=== PATIENT | female | born 1935 | race Caucasian/White ===

== ENCOUNTER → 2016-06-10 | Outpatient (CLI) | payer BC, OTHER ==
[~2016-06-10] MED LIST: ASPCH81X PO; LOSA1TAB38 PO; METO25TA56 PO; MULT-506 PO; SERT50TA PO; SIMV20TA2 PO
[2016-06-10 13:15] LABS: ALT/SGPT 24 U/L (12-78); BLOOD UREA NITROGEN 18 mg/dl (7-18); BUN/CREATININE RATIO 18.4 (10-20); CALCIUM 9.8 mg/dl (8.5-10.1); CARBON DIOXIDE 28 mmol/L (21-32); CHLORIDE 106 mmol/L (98-107); CHOLESTEROL 177 mg/dl (0-200); CREATININE 0.96 mg/dl (0.60-1.20); GLUCOSE 89 mg/dl (70-99); POTASSIUM 4.4 mmol/L (3.5-5.1); SODIUM 141 mmol/L (136-145)
[2016-06-10 13:38] LABS: ALB/GLOB RATIO 1.3 (0.9-2); ALKALINE PHOSPHATASE 69 U/L (45-117); AST/SGOT 27 U/L (15-37); CHOLESTEROL/HDL RATIO 2.7; HDL CHOLESTEROL 66 mg/dl; LDL CHOLESTEROL CALCULATED 95 mg/dl; TRIGLYCERIDES 81 mg/dl (0-150); VERY LOW DENSITY LIPOPROT CALC 16 mg/dl
--- NOTE | 2016-06-15 09:37 | CODING QUERY MEDICAL NECESSITY ---
SUPPORTING DIAGNOSIS NEEDED A supporting diagnosis is required for the test/procedure performed on this patient in order for us to be reimbursed by the patient's insurance. Please provide a supporting diagnosis for the following test/procedure listed below next to the test name along with your signature. *If there is no additional diagnosis for this patient that would support the following test/procedure please document that below next to the test/procedure. Test(s)/Procedure(s) that require a supporting diagnosis: DOS 06/10 * Vitamin D DIAGNOSIS: Provider Signature: Date: Thank you [facility] Once completed, please kindly fax back to [phone] For questions please call [phone]
== END | disposition home or self-care (01) ==
LOC: C.LABPVFM 07:30
PROVIDERS: ATTEND Family Medicine
DX: F41.8 Other specified anxiety disorders (principal); E78.5 Hyperlipidemia, unspecified; I10 Essential (primary) hypertension; M85.80 Other specified disorders of bone density and structure, unspecified site

== ENCOUNTER → 2017-01-25 | Outpatient (CLI) | payer BC ==
[2017-01-25 13:11] LABS: ALB/GLOB RATIO 1.1 (0.9-2); ALKALINE PHOSPHATASE 78 U/L (45-117); ALT/SGPT 23 U/L (12-78); AST/SGOT 20 U/L (15-37); BLOOD UREA NITROGEN 19 mg/dl (7-18); CALCIUM 10.3 mg/dl (8.5-10.1); CARBON DIOXIDE 27 mmol/L (21-32); CHLORIDE 106 mmol/L (98-107); CHOLESTEROL 162 mg/dl (0-200); CHOLESTEROL/HDL RATIO 2.5; CREATININE 0.98 mg/dl (0.60-1.20); GLUCOSE 92 mg/dl (70-99); HDL CHOLESTEROL 66 mg/dl; POTASSIUM 4.7 mmol/L (3.5-5.1); SODIUM 140 mmol/L (136-145)
[2017-01-25 13:14] LABS: LDL CHOLESTEROL CALCULATED 82 mg/dl; TRIGLYCERIDES 70 mg/dl (0-150); VERY LOW DENSITY LIPOPROT CALC 14 mg/dl
== END | disposition home or self-care (01) ==
LOC: C.LABPVFM 08:52
PROVIDERS: ATTEND Family Medicine
DX: E78.5 Hyperlipidemia, unspecified (principal); I10 Essential (primary) hypertension

== ENCOUNTER → 2017-02-17 | Outpatient (CLI) | payer BC | END | disposition home or self-care (01) | LOC: C.LABPVFM 09:47 | PROVIDERS: ATTEND Family Medicine | DX: E83.52 Hypercalcemia (principal) ==

== ENCOUNTER → 2017-02-26 | Outpatient (CLI) | payer BC ==
--- NOTE | 2017-02-26 15:57 | MAMMOGRAPHY REPORT ---
BILATERAL DIGITAL SCREENING MAMMOGRAM WITH CAD: 02/26/2017 CLINICAL HISTORY: Routine screening. TECHNIQUE: Current study was also evaluated with a Computer Aided Detection (CAD) system. Bilateral CC and MLO views were obtained. COMPARISON: Comparison is made to exams dated: 08/16/2014 mammogram, 01/11/2012 mammogram, 01/07/2011 ma mmogram, 01/06/2010 mammogram - [facility], 12/26/2008, and 12/26/2007. BREAST COMPOSITION: There are scattered areas of fibroglandular density in both breasts. FINDINGS: No suspicious masses, calcifications, or areas of architectural distortion are noted in ei ther breast. There has been no significant interval change compared to prior exams. Scattered bilater al benign-appearing calcifications are not significantly changed. IMPRESSION: ACR BI-RADS CATEGORY 2: BENIGN There is no mammographic evidence of malignancy. A 1 year screening mammogram is recommended. The pa tient will receive written notification of the results. Approximately 10% of breast cancers are not detected with mammography. A negative mammographic report should not delay biopsy if a clinically suggestive mass is present. Kimberli Donald M.D. ah/:02/26/2017 15:29:10 Employee Relations Manager: Clara SMYTH(Rashawn)(M), [facility] letter sent: Normal 1/2 BI-RADS Code: ACR BI-RADS Category 2: Benign
== END | disposition home or self-care (01) ==
LOC: C.MAMM 13:54
PROVIDERS: ATTEND Family Medicine
DX: Z12.31 Encounter for screening mammogram for malignant neoplasm of breast (principal)

== ENCOUNTER → 2017-04-16 | Outpatient (CLI) | payer BC | END | disposition home or self-care (01) | LOC: C.LABPVFM 08:36 | PROVIDERS: ATTEND Nurse Practitioner | DX: E83.52 Hypercalcemia (principal) ==

== ENCOUNTER → 2017-05-31 | Outpatient (CLI) | payer BC ==
[2017-05-31 14:05] LABS: ALBUMIN 3.5 gm/dl (3.4-5.0); ALT/SGPT 19 U/L (12-78); AST/SGOT 21 U/L (15-37); BLOOD UREA NITROGEN 14 mg/dl (7-18); CALCIUM 9.6 mg/dl (8.5-10.1); CARBON DIOXIDE 28 mmol/L (21-32); CHOLESTEROL 152 mg/dl (0-200); CREATININE 0.85 mg/dl (0.60-1.20); GLUCOSE 92 mg/dl (70-99); POTASSIUM 4.6 mmol/L (3.5-5.1); SODIUM 139 mmol/L (136-145)
[2017-05-31 14:07] LABS: ALKALINE PHOSPHATASE 74 U/L (45-117); LDL CHOLESTEROL CALCULATED 81 mg/dl; TOTAL PROTEIN 6.8 gm/dl (6.4-8.2)
== END | disposition home or self-care (01) ==
LOC: C.LABPVFM 08:08
PROVIDERS: ATTEND Family Medicine
DX: E78.5 Hyperlipidemia, unspecified (principal); I10 Essential (primary) hypertension

== ENCOUNTER → 2017-07-26 | Outpatient (CLI) | payer BC ==
[2017-07-26 12:50] LABS: BLOOD UREA NITROGEN 16 mg/dl (7-18); CARBON DIOXIDE 29 mmol/L (21-32); CREATININE 0.89 mg/dl (0.60-1.20); GLUCOSE 98 mg/dl (70-99); POTASSIUM 4.7 mmol/L (3.5-5.1); SODIUM 138 mmol/L (136-145)
== END | disposition home or self-care (01) ==
LOC: C.LABPVFM 10:06
PROVIDERS: ATTEND Nurse Practitioner
DX: R00.2 Palpitations (principal); M85.80 Other specified disorders of bone density and structure, unspecified site; I10 Essential (primary) hypertension; G25.0 Essential tremor

== ENCOUNTER 2022-04-21 08:29 | Inpatient (IN) ==
[2022-04-21] MEDS ORDERED: dilTIAZem HCl 5 MG/ML 5 ML VIAL IV STA (09:24)
[2022-04-21] MEDS ORDERED: STAT IV Infusion **Titration per Protocol STA (09:24)
--- NOTE | 2022-04-21 09:28 | Emergency Department Note ---
Impression & Plan Atrial fibrillation with RVR, Elevated troponin, Breath shortness ED Provider Note NAME: JUAN CRUZ AGE: 87 SEX: F : 1935 ARRIVES VIA: Walk-In INFORMANT: Patient ED PROVIDER(S): Jacobo Chou DO CHIEF COMPLAINT: shortness of breath HPI: Patient is an 87-year-old female who presents to the ER with a past medical history of depression, SVT, hypertension and dyslipidemia for feeling her heart race and feeling short of breath with up moving around since Wednesday. Denies any chest pain. No belly pain, nausea, vomiting, or diarrhea. No dysuria, urgency, or frequency. She does feel weak and rundown. No other exacerbating or remitting factors. ROS: See above HPI for pertinent positives & negatives. A total of 10 systems reviewed and were otherwise negative. PAST MEDICAL HISTORY:See Below PAST SURGICAL HISTORY:See Below FAMILY HISTORY:See Below SOCIAL HISTORY:See Below HOME MEDICATIONS:See Below ALLERGIES:See Below VITALS:See Below PHYSICAL EXAMINATION: GENERAL: Sitting up in bed, alert, well appearing, well nourished, no distress, non-toxic EYE EXAM: normal conjunctiva. OROPHARYNX: no exudate, no erythema, lips, buccal mucosa, and tongue normal and mucous membranes are moist NECK: supple, no nuchal rigidity, no adenopathy, non-tender LUNGS: Clear to auscultation. Normal chest wall mechanics HEART: Tachycardic and irregular regular, S1 normal and S2 normal ABDOMEN: abdomen soft, non-tender, normo-active bowel sounds, no masses, no rebound or guarding. UPPER EXTREMITIES: upper extremities are grossly normal. LOWER EXTREMITIES: No pitting edema. NEURO EXAM: Normal sensorium, cranial nerves II-XII grossly intact, normal sp eech, no gross weakness of arms, no gross weakness of legs. MEDICAL DECISION MAKING: Patient is an 87-year-old female who presents ER for the above-stated complaint. Upon arrival she is found to be tachycardic and irregular regular consistent with A. fib. History of SVT previously. Heart rates in the 170s. IV was established blood work was obtained. Labs show no significant leukocytosis or anemia. BMP was remarkable for slightly elevated glucose at 116. Calcium also mildly elevated at 10.9. Troponin was elevated at 344. She denies any chest pain. I do favor that this likely rate related with her heart rate going in the 170s since Wednesday. TSH was unremarkable. COVID was negative. Chest x-ray was unremarkable. She was given aspirin and placed on Cardizem drip and given a Cardizem bolus. Drip was titrated up. Heart rate trended down to the low 100s. Patient was feeling slightly better. She was updated bedside discussed with the hospitalist for further evaluation. Triage Nursing notes reviewed. Limited review of prior medical records performed Vital Signs: reviewed and remarkable for tachy Differential diagnosis: Differential diagnoses includes but is not limited to pneumonia, bronchitis, COPD/Asthma exacerbation, pneumothorax, pulmonary embolism, congestive heart failure, acute coronary syndrome ER treatment provided: See below Diagnostics interpreted by me: ECG: A. fib rate of 160 Left axis Septal Q waves ST depressions in the inferior as well as V3 through V6 QTC 466 Slight elevation in the septal leads. Cardiac Monitoring: An order was placed for continuous cardiac monitoring. The monitor shows a rate of 172 with Afib rvr rhythm. Laboratory studies: As stated above and show below. Imaging studies: Portable AP upright 1 view of the chest shows no focal infiltrate Consultation(s): Discussed with the hospitalist for further evaluation Radha Benítez Procedures: none Critical Care: I have personally spent 33 minutes of critical care time in the direct management of this patient. This includes bedside care, interpretation of diagnostic studies, and testing, discussion with consultants, patient, and family members, and other required patient management activities. This 33 minutes is in excess of all separately billable procedures. Past Med/Surg History Medical History (Updated 04/21/22 @ 13:38 by Jacobo Chou DO) Acute sinusitis External carotid artery stenosis Fatigue Granulocytopenia Hypercalcemia Left thigh pain Low back ache Myofascial muscle pain Seborrheic keratosis Telangiectasia Surgical History History of cataract surgery Family History Brother Myocardial infarction Denies family history of Ovarian cancer Prostate cancer Breast cancer Colorectal cancer Social History Smoking Status: Never smoker Second Hand Exposure: No; Hx Alcohol Use: No Hx Substance Use: No Preferred Language: Macanese marital status: / Current Living Situation: Family current occupational status: retired Feels Safe at Home: Yes caffeine: Yes Dental Care, Regularly: Yes Physical Activity Frequency: Does not Exercise Seatbelt Use: always Sunscreen Use: Yes Allergies Allergies Allergy/AdvReac Type Severity Reaction Status Date / Time No Known Drug Allergies AdvReac Unknown Verified 12/26/21 15:26 Home Meds Home Medications Medication Instructions Recorded Confirmed aspirin 81 mg tablet 81 mg PO DAILY #30 tabs 03/19/19 04/21/22 cholecalciferol (vitamin D3) 50 2,000 units PO DAILY 03/19/19 04/21/22 mcg (2,000 unit) capsule vitamins A,C,A-zcza-frsyrt 14,320 1 cap PO BID 05/02/21 04/21/22 unit-226 mg-200 unit capsule (PreserVision AREDS) losartan 50 mg tablet 100 mg PO DAILY 04/21/22 04/21/22 Previous Rx's Medication Instructions Recorded simvastatin 20 mg tablet 20 mg PO DAILY #90 tabs 08/12/21 escitalopram oxalate 5 mg tablet 5 mg PO DAILY #90 tabs 11/04/21 (Lexapro) propranolol 60 mg capsule,24 60 mg PO DAILY #90 caps 03/10/22 hr,extended release Results & Data (ED) Vital Signs Vital Signs - 24 hr 04/21/22 08:47 04/21/22 09:16 04/21/22 09:17 Temperature 36.4 C L Temperature Source Temporal Artery Scan Pulse Rate 117 H Pulse Rate [Apical] 165 H Pulse Rhythm Regular Pulse Rhythm [Apical] Irregular Pulse Strength Normal Respiratory Rate 20 19 Respiratory Effort / Characteristics Non-Labored Spontaneous Respiratory Depth Normal Respiratory Pattern Regular Blood Pressure 126/80 Blood Pressure [Left Arm] Blood Pressure Mean 95 Blood Pressure Mean [Left Arm] Blood Pressure Position Sitting Pulse Oximetry 99 96 96 Oxygen Delivery Method Room Air Room Air Sepsis Recent Fever Within 48 Hours No Sepsis New/Unexplained Change in Mental Status No Sepsis Action Taken by Nursing No Action Required 04/21/22 09:17 04/21/22 09:35 Temperature Temperature Source Pulse Rate Pulse Rate [Apical] 119 H Pulse Rhythm Pulse Rhythm [Apical] Irregular Pulse Strength Respiratory Rate 18 Respiratory Effort / Characteristics Respiratory Depth Respiratory Pattern Blood Pressure Blood Pressure [Left Arm] 96/66 L Blood Pressure Mean Blood Pressure Mean [Left Arm] 76 Blood Pressure Position Pulse Oximetry 96 Oxygen Delivery Method Room Air Room Air Sepsis Recent Fever Within 48 Hours Sepsis New/Unexplained Change in Mental Status Sepsis Action Taken by Nursing Laboratory Data Result diagrams: 04/21/22 09:15 04/21/22 09:15 Lab Results 04/21/22 04/21/22 04/21/22 Range/Units 09:15 09:15 09:15 WBC 9.07 (4.8-10.8) K/ul RBC 4.91 (3.93-5.22) M/uL Hgb 15.2 (12.0-16.0) g/dl Hct 46.7 H (34.1-44.9) % MCV 95.1 (80.0-100.0) fL MCH 31.0 (25.0-34.0) pg MCHC 32.5 (32.0-36.0) g/dL RDW Std Deviation 43.4 (36.4-46.3) fL RDW Coeff of Elizabeth 12.4 (11.5-14.5) % Plt Count 234 (130-400) K/uL MPV 11.3 (9.4-12.3) fL Immature Gran % (Auto) 0.4 % Neut % (Auto) 71.6 % Lymph % (Auto) 19.7 % Gove % (Auto) 6.6 % Eos % (Auto) 0.9 % Baso % (Auto) 0.8 % Neut # (Auto) 6.49 (1.4-6.5) K/uL Lymph # (Auto) 1.79 (1.2-3.4) K/uL Gove # (Auto) 0.60 (0.24-0.82) K/uL Eos # (Auto) 0.08 (0-0.50) K/uL Baso # (Auto) 0.07 (0-0.2) K/uL Immature Gran # (Auto) 0.04 H (0.00-0.02) K/uL PT 11.3 (9.0-12.0) Seconds INR 1.1 (0.9-1.1) APTT 26.2 (21.0-31.0) Seconds PTT Ratio 1.0 Sodium 140 (136-145) mmol/L Potassium 4.1 (3.5-5.1) mmol/L Chloride 104 (98-107) mmol/L Carbon Dioxide 30 (21-32) mmol/L Anion Gap 6 (3-11) BUN 23 (6-23) mg/dl Creatinine 1.01 (0.6-1.2) mg/dl Est Cr Clr Drug Dosing 33.7 ml/min Est GFR ( Amer) 58.8 ml/min Est GFR (Non-Af Amer) 50.7 ml/min BUN/Creatinine Ratio 22.8 H (10-20) Glucose 116 H (70-99(Fasting)) mg/dl Calcium 10.9 H (8.5-10.1) mg/dl Total Bilirubin 0.6 (0.2-1.0) mg/dl AST 24 (13-39) U/L ALT 19 (7-52) U/L Alkaline Phosphatase 69 (34-104) U/L Troponin I High Sens 344.1 H* (0-14) pg/ml Total Protein 6.5 (6.0-8.3) gm/dl Albumin 4.0 (3.4-5.0) gm/dl Globulin 2.5 (2.5-4.0) gm/dl Albumin/Globulin Ratio 1.6 (0.9-2) TSH (0.300-4.500) uIu/ml 04/21/22 Range/Units 09:15 WBC (4.8-10.8) K/ul RBC (3.93-5.22) M/uL Hgb (12.0-16.0) g/dl Hct (34.1-44.9) % MCV (80.0-100.0) fL MCH (25.0-34.0) pg MCHC (32.0-36.0) g/dL RDW Std Deviation (36.4-46.3) fL RDW Coeff of Elizabeth (11.5-14.5) % Plt Count (130-400) K/uL MPV (9.4-12.3) fL Immature Gran % (Auto) % Neut % (Auto) % Lymph % (Auto) % Gove % (Auto) % Eos % (Auto) % Baso % (Auto) % Neut # (Auto) (1.4-6.5) K/uL Lymph # (Auto) (1.2-3.4) K/uL Gove # (Auto) (0.24-0.82) K/uL Eos # (Auto) (0-0.50) K/uL Baso # (Auto) (0-0.2) K/uL Immature Gran # (Auto) (0.00-0.02) K/uL PT (9.0-12.0) Seconds INR (0.9-1.1) APTT (21.0-31.0) Seconds PTT Ratio Sodium (136-145) mmol/L Potassium (3.5-5.1) mmol/L Chloride (98-107) mmol/L Carbon Dioxide (21-32) mmol/L Anion Gap (3-11) BUN (6-23) mg/dl Creatinine (0.6-1.2) mg/dl Est Cr Clr Drug Dosing ml/min Est GFR ( Amer) ml/min Est GFR (Non-Af Amer) ml/min BUN/Creatinine Ratio (10-20) Glucose (70-99(Fasting)) mg/dl Calcium (8.5-10.1) mg/dl Total Bilirubin (0.2-1.0) mg/dl AST (13-39) U/L ALT (7-52) U/L Alkaline Phosphatase (34-104) U/L Troponin I High Sens (0-14) pg/ml Total Protein (6.0-8.3) gm/dl Albumin (3.4-5.0) gm/dl Globulin (2.5-4.0) gm/dl Albumin/Globulin Ratio (0.9-2) TSH 2.022 (0.300-4.500) uIu/ml Administered Medications Diltiazem HCl 125 mg/ Dextrose 125 mls @ 5 mls/hr IV .Q24H [facility]; Protocol Stop: 05/21/22 09:29 Last Titration: 04/21/22 11:06 Dose: 10 mg/hr, 10 mls/hr Documented By: AZALIA Co-signed By: ROSINA Admin: 04/21/22 09:39 Dose: 5 mg/hr, 5 mls/hr Documented By: AZALIA Co-signed By: HS Discontinued Medications Aspirin (Aspirin Chew 324 Mg) 324 mg PO NOW STA Stop: 04/21/22 10:54 Last Admin: 04/21/22 11:08 Dose: 324 mg Documented By: AZALIA Diltiazem HCl (Diltiazem Hcl 5 Mg/Ml 5 Ml Vial) 10 mg IV NOW STA Stop: 04/21/22 09:25 Last Admin: 04/21/22 09:30 Dose: 10 mg Documented By: KV Co-signed By: ROSINA Sodium Chloride (Nss) 500 mls @ 999 mls/hr IV .Q31M ONE Stop: 04/21/22 11:04 Last Infusion: 04/21/22 11:38 Dose: 0 mls/hr Documented By: Admin: 04/21/22 11:07 Dose: 999 mls/hr Documented By: KV Imaging Data Radiologist's Impression: Chest X-Ray 04/21/22 08:51 XR chest 1V portable HISTORY: 87 years-old Female Chest Pain . Acute chest pain. COMPARISON: None TECHNIQUE: AP view of the chest FINDINGS: Cardiac silhouette is mildly enlarged. Mild pleural thickening of the lung apices. Mild coarsening of interstitium may be chronic. No pneumothorax, pleural effusion or lobar airspace consolidation. Degenerative changes of the shoulders and spine. IMPRESSION: Cardiomegaly without acute process. ACT 112: Negative or not required by law. The above report was generated using voice recognition software. It may contain grammatical, syntax or spelling errors. Electronically signed by: Geovany Langston M.D. 04/21/2022 10:12 AM Discharge Plan Visit Data Chief Complaint: Arrhythmia/Palpitations Stated Complaint: ARRHYTHMIAS ED Provider: Jacobo Chou Discharge Problem: Atrial fibrillation with RVR, Elevated troponin, Breath shortness Patient Disposition: Admitted As Inpatient Discharge Instructions Interventions: ED Discharge Assessment Last Done: 04/21/22 12:48
[2022-04-21] MEDS: dilTIAZem HCL 125 MG in DEXTROSE 5% 100 ML IV SCH ×2 (09:39→22:03)
[2022-04-21 10:05] LABS: Basophils # (auto) 0.07 K/uL (0-0.2); Basophils % (auto) 0.8 %; Eosinophils # (auto) 0.08 K/uL (0-0.50); Eosinophils % (auto) 0.9 %; Hematocrit (blood only) 46.7 % (34.1-44.9); Hemoglobin 15.2 g/dl (12.0-16.0); Immature Granulocytes # (auto) 0.04 K/uL (0.00-0.02); Immature Granulocytes % (auto) 0.4 %; Lymphocytes # (auto) 1.79 K/uL (1.2-3.4); Lymphocytes % (auto) 19.7 %; Mean Corpuscular Hgb Conc 32.5 g/dL (32.0-36.0); Mean Corpuscular Volume 95.1 fL (80.0-100.0); Mean Platelet Volume 11.3 fL (9.4-12.3); Monocytes % (auto) 6.6 %; Neutrophils # (auto) 6.49 K/uL (1.4-6.5); Neutrophils % (auto) 71.6 %; Platelet Count 234 K/uL (130-400); RDW Coefficient of Variation 12.4 % (11.5-14.5); RDW Standard Deviation 43.4 fL (36.4-46.3); Red Blood Count 4.91 M/uL (3.93-5.22); White Blood Count 9.07 K/ul (4.8-10.8)
--- NOTE | 2022-04-21 10:13 | XRay Report ---
XR chest 1V portable HISTORY: 87 years-old Female Chest Pain . Acute chest pain. COMPARISON: None TECHNIQUE: AP view of the chest FINDINGS: Cardiac silhouette is mildly enlarged. Mild pleural thickening of the lung apices. Mild coarsening of interstitium may be chronic. No pneumothorax, pleural effusion or lobar airspace consolidation. Dege nerative changes of the shoulders and spine. IMPRESSION: Cardiomegaly without acute process. ACT 112: Negative or not required by law. The above report was generated using voice recognition software. It may contain grammatical, syntax o r spelling errors. Electronically signed by: Geovany Langston M.D. 04/21/2022 10:12 AM
[2022-04-21 10:22] LABS: INR 1.1 (0.9-1.1); Partial Thromboplastin Time 26.2 Seconds (21.0-31.0); Prothrombin Time 11.3 Seconds (9.0-12.0)
[2022-04-21] MEDS ORDERED: SODIUM CHLORIDE 0.9% 500 ML IV ONE (10:34)
[2022-04-21 10:43] LABS: Albumin Globulin Ratio 1.6 (0.9-2); BUN Creatinine Ratio 22.8 (10-20); Bilirubin,Total 0.6 mg/dl (0.2-1.0); Calcium 10.9 mg/dl (8.5-10.1); Creatinine Clr Calc Pharmacy 33.7 ml/min; Est GFR (African American) 58.8 ml/min; Est GFR (Non-African American) 50.7 ml/min; Globulin 2.5 gm/dl (2.5-4.0); Potassium 4.1 mmol/L (3.5-5.1); Total Protein 6.5 gm/dl (6.0-8.3)
[2022-04-21 10:48] LABS: Troponin I High Sensitivity 344.1 pg/ml (0-14)
[2022-04-21] MEDS ORDERED: ASPIRIN CHEW 324 MG PO STA (10:53)
--- NOTE | 2022-04-21 10:57 | History & Physical Report ---
Date of Service April 21, 2022 Assessment & Plan (1) Atrial fibrillation with RVR: Plan: - 4 days of palpiations, SOB, general weakness/fatigue. - A fib present, hemodynamically stable on initial eval in ED with HR 160-180s, given 500 cc NSS and diltiazem drip w/ bolus in ED. - Now down to 110s but quickly goes back to 140s with ambulation to bathroom. - No acute illness/infection, missed Propranolol doses, or electrolyte abnormalities on initial ED labs to explain onset--though mag, TSH, UA are pending. - In addition to diltiazem drip, will start patient on Cardizem 30 mg TID. - Will consult cardiology to evaluate patient today. - Patient insistent this is not a fib, would like to wait for cardiology evaluation before starting on anticoagulation. - Maintain K 4.0, Mg 2.0. - Echo ordered, pending. (2) Elevated troponin: Plan: - Trop elevated at 344, EKG not available in system for my review but ED provider reported ST segment changes in inferior and anterolateral leads. - Full dose ASA received in ED. - Patient is without chest pain or tightness, so suspect this is demand from being in afib for 4 days now, but cannot r/o underlying CAD. - Will trend troponin overnight, as well as repeat echo and have cardiology on consult as above. - Patient instructed to ring fro assistance with any new onset chest pain/pressure. (3) Paroxysmal SVT (supraventricular tachycardia): Plan: - Longstanding history, follows with cardiology. - She is maintained on propranolol 60 mg daily, no missed doses. Occasionally takes an extra dose for rapid HR. Did take one additional dose over the weekend without alleviation. - Cardiology consulted as above. (4) Benign essential tremor: Plan: - Maintained on propranolol. (5) Hypertension: Plan: - Continue losartan. (6) Dyslipidemia: Plan: - Continue simvastatin. (7) Hypercalcemia: Plan: - Elevated today at 10.9, and has been elevated on previous outpatient labs from this summer perp PCP note. - Last PTH and vitamin D were reportedly normal. - Continue to monitor. (8) Allergic rhinitis: Plan: - Continue Flonase, OTC medications as needed. (9) Depression: Plan: - Continue lexapro. Plan - Admit to PCU. - SCDS, Lovenox for VTE ppx. - Conditional Code--YES to CPR/defibrillation/ACLS protocl but does not want mechanical airway/intubation. History of Present Illness Chief Complaint: Palpitations, shortness of breath x4 days Primary Care Provider: SARAH Sanches Avelina Esposito is an 87-year-old female the past medical history of paroxysmal SVT, hypertension, dyslipidemia, depression, and hypercalcemia who is presenting today with 4 days of palpitations and shortness of breath. Symptoms began on Wednesday 04/18 when she noticed her heart seemed to be beating fast and erratically which she believed to be her paroxysmal SVT. She tried to take an extra dose of the propranolol which she typically does to break this, but did no t have alleviation of her symptoms. The palpitations have persisted despite taking her propranolol as scheduled in addition to 1 extra dose, and she became progressively short of breath reportedly 4-5 steps throughout her home. At baseline she is independent and cleans her home and cares for self without ever experiencing chest pain or shortness of breath, however it is not uncommon for her to go into what she perceives to be SVT 12 times/month. She has not had any fever, chills, body aches, cough, abdominal pain, nausea, vomiting, or dysuria but does feel generally rundown. Upon presentation to the ED, she had an HR in the 170s, otherwise vital signs wnl. Her troponin is elevated at 344, otherwise labs largely unrevealing. COVID-negative. CXR with cardiomegaly, no acute disease process noted. She was given 500 cc NSS bolus, started on a diltiazem drip, and given full dose aspirin in the ED. Allergies Allergy/AdvReac Type Severity Reaction Status Date / Time No Known Drug Allergies AdvReac Unknown Verified 12/26/21 15:26 Home Medications Medication Instructions Recorded Confirmed Type aspirin 81 mg tablet 81 mg PO DAILY #30 tabs 03/19/19 04/21/22 History cholecalciferol (vitamin D3) 50 2,000 units PO DAILY 03/19/19 04/21/22 History mcg (2,000 unit) capsule vitamins A,C,R-utqy-lyvfyz 14,320 1 cap PO BID 05/02/21 04/21/22 History unit-226 mg-200 unit capsule (PreserVision AREDS) simvastatin 20 mg tablet 20 mg PO DAILY #90 tabs 08/12/21 04/21/22 Rx escitalopram oxalate 5 mg tablet 5 mg PO DAILY #90 tabs 11/04/21 04/21/22 Rx (Lexapro) propranolol 60 mg capsule,24 60 mg PO DAILY #90 caps 03/10/22 04/21/22 Rx hr,extended release losartan 50 mg tablet 100 mg PO DAILY 04/21/22 04/21/22 History Past Med/Surg History Medical History (Updated 04/21/22 @ 11:46 by Radha Gonsalez PA-C) Acute sinusitis External carotid artery stenosis Fatigue Granulocytopenia Hypercalcemia Left thigh pain Low back ache Myofascial muscle pain Seborrheic keratosis Telangiectasia Surgical History History of cataract surgery Family History Brother Myocardial infarction Denies family history of Ovarian cancer Prostate cancer Breast cancer Colorectal cancer Social History Smoking Status: Never smoker Second Hand Exposure: No; Hx Alcohol Use: No Hx Substance Use: No Preferred Language: Citizen Of [place] marital status: / Current Living Situation: Family current occupational status: retired Feels Safe at Home: Yes caffeine: Yes Dental Care, Regularly: Yes Physical Activity Frequency: Does not Exercise Seatbelt Use: always Sunscreen Use: Yes Review of Systems Review of Systems: Constitutional: General weakness, fatigue x4 days; no fever/chills, myalgias, anorexia, night sweats Eyes: No diplopia, no worsening or blurred vision ENT: normal hearing, no trouble swallowing Respiratory: Progressive SOB, dyspnea on exertion x4 days; no cough, sputum Cardiovascular: Palpitations x4 days, no chest pain or tightness Abdomen: No pain, nausea, vomiting, diarrhea or constipation : Denies dysuria, hematuria, increased urgency/frequency, urinary retention Musculoskeletal: No joint pain, calf pain, swelling Neurologic: No weakness, numbness/tingling, or balance problems Psychiatric: No anxiety or depression Skin: No rash or itch Physical Exam Physical Exam: General: awake, alert, no apparent distress Head: Normocephalic, atraumatic ENT: PERRL, EOMI, no pharyngeal exudate, mucous membranes moist Chest: Clear to auscultation, on room air, no adventitious breath sounds Cardiac: Irregular rate and rhythm consistent with A. fib; no murmur, no JVD, normal peripheral pulses, good capillary refill Abdominal: NABS x 4 quadrants, soft, nontender to palpation, no rebound, guarding or tenderness Extremities: Normal inspection, no peripheral edema or erythema, calfs nontender to palpation Psych: Normal mood and affect Neuro: AAO x 3, strength intact bilaterally and rated 5/5, no motor deficits, speech is clear, no peripheral sensory deficits Skin: no rash or erythema Results & Data Results & Data ([facility]) Vital Signs (Past 12 Hours) Vital Signs Temp Pulse Pulse Resp BP BP Pulse Ox 04/21/22 09:35 119 H 18 96/66 L 96 04/21/22 09:17 04/21/22 09:17 165 H 19 96 04/21/22 09:16 96 04/21/22 08:47 36.4 C L 117 H 20 126/80 99 O2 Del Method 04/21/22 09:35 Room Air 04/21/22 09:17 Room Air 04/21/22 09:17 04/21/22 09:16 Room Air 04/21/22 08:47 Room Air Laboratory Results Abnormal lab results 04/21/22 04/21/22 Range/Units 09:15 09:15 Hct 46.7 H (34.1-44.9) % Immature Gran # (Auto) 0.04 H (0.00-0.02) K/uL BUN/Creatinine Ratio 22.8 H (10-20) Glucose 116 H (70-99(Fasting)) mg/dl Calcium 10.9 H (8.5-10.1) mg/dl Troponin I High Sens 344.1 H* (0-14) pg/ml Diagnostic Findings Chest X-Ray 04/21/22 08:51 XR chest 1V portable HISTORY: 87 years-old Female Chest Pain . Acute chest pain. COMPARISON: None TECHNIQUE: AP view of the chest FINDINGS: Cardiac silhouette is mildly enlarged. Mild pleural thickening of the lung apices. Mild coarsening of interstitium may be chronic. No pneumothorax, pleural effusion or lobar airspace consolidation. Degenerative changes of the shoulders and spine. IMPRESSION: Cardiomegaly without acute process. ACT 112: Negative or not required by law. The above report was generated using voice recognition software. It may contain grammatical, syntax or spelling errors. Electronically signed by: Geovany Langston M.D. 04/21/2022 10:12 AM Code Status & VTE Plan Code Status Conditional Code--YES to CPR/defibrillation and standard ACLS protocol but WOULD NOT WANT mechanical airway/intubation. Supervising Physician Co-Signing Physician Notes Patient was seen and examined independently I discussed the case with Radha YOUSSEF I reviewed pertinent past medical social family history and also the plan of care and agree with the plan of care. Patient has history of SVT takes propranolol. She took an additional dose of propranolol she felt palpitations. In the emergency department she has a rapid rate which seems to be more atrial fibrillation of which she does not have a significant history. Most office visits recently have had low heart rates. Patient is not yet decided whether she would permit full anticoagulation. She wishes to speak to her community coordinator about it. Other than that she does not have any current chest pain. She becomes dyspneic when she exerts herself. Cardiac exam finds a be tachycardic and irregularly irregular her lungs are clear her abdomen is normoactive bowel sounds extremities are without edema Atrial fibrillation rapid ventricular response Patient will be continued on diltiazem drip and started on p.o. diltiazem in addition to her propranolol. Echocardiography and cardiology consultation will be performed Checking magnesium and thyroid Any exceptions will be noted below PG Care Time/CCT Total # of Minutes Spent Total Time Spent with Patient: Total time spent is greater than 50% in coordination of care (as documented) at patient's floor/unit and/or counseling patient: Coding Level of Care Code 16505 Initial Inpt Care Lvl 3 Diagnoses Atrial fibrillation with RVR I48.91 Elevated troponin R77.8 Paroxysmal SVT (supraventricular tachycardia) I47.1 Benign essential tremor G25.0 Hypertension I10 Dyslipidemia E78.5 Hypercalcemia E83.52 Allergic rhinitis J30.9 Depression F32.9
[2022-04-21] MEDS ORDERED: ONDANSETRON INJ 2 MG/ML 2 ML VIAL IV PRN (12:48)
[2022-04-21] MEDS ORDERED: POLYETHYLENE (MIRALAX) 17 GM PACK PO PRN (12:48)
[2022-04-21] MEDS ORDERED: ALUMINUM/MAGNESIUM SUSP 30 ML UDC PO PRN (12:48)
[2022-04-21] MEDS ORDERED: ACETAMINOPHEN 325 MG TAB PO PRN (12:48)
[2022-04-21 13:48] LABS: Magnesium 1.8 mg/dl (1.7-2.4)
[2022-04-21 14:00] LABS: Troponin I High Sensitivity 518.3 pg/ml (0-14)
--- NOTE | 2022-04-21 14:12 | XCELERA ---
[id number] \\[id number]
[2022-04-21] MEDS ORDERED: INFLUENZA VACCINE HIGH DOSE PF 65+ 0.7 ML SYR IM ONE (15:51)
[2022-04-21] MEDS: dilTIAZem HCL 30 MG TAB PO SCH ×2 (16:01→20:06)
--- NOTE | 2022-04-21 16:05 | Cardiology Consultation ---
Date of Consultation April 21, 2022 Assessment & Plan (1) Atrial fibrillation with RVR: -the patient has been in atrial fibrillation most likely since Wednesday afternoon. -she has responded to intravenous diltiazem. -can convert her to oral diltiazem. -would initiate Eliquis 2.5 mg b.i.d. (greater than 80 years of age, almost less than 60 kg). -echocardiogram notes normal left ventricular systolic function. (2) Hypertension: -controlled on current regimen. (3) Dyslipidemia: -continue simvastatin. History of Present Illness Attending Physician: Anthony Hawkins MD History of Present Illness Mrs. Esposito is an 87-year-old female admitted earlier today with new onset atrial fibrillation and a rapid ventricular response. Of note, patient is well known to me from the outpatient setting. The patient was in her usual state of health until 3:30 on Wednesday afternoon. She noticed the abrupt onset of palpitations and exertional dyspnea. Her symptoms persisted through the ensuing days. Today, she began to note weakness associated with her palpitations, therefore, presented to the emergency room for further care. On arrival here, patient was found to be in atrial fibrillation with a rapid ventricular response. She was placed on a diltiazem drip and her heart rate is now better controlled. She has never the diagnosis of atrial fibrillation. She does have a history of symptomatic PACs and PVCs. She also history a paroxysmal supraventricular tachycardia. Currently, patient is resting comfortably in bed without complaints. Past medical and surgical history 1. Hypertension 2. Hypercholesterolemia 3. Symptomatic PACs/PVCs 4. Paroxysmal SVT 5. Mild mitral regurgitation-May 2021 6. Essential tremor 7. Allergic rhinitis 8. Bilateral intra-ocular lens implants Social history , lives alone No tobacco alcohol Family history Noncontributory Review of systems Ten point review systems was undertaken and negative except that described above. Allergies Allergy/AdvReac Type Severity Reaction Status Date / Time No Known Drug Allergies AdvReac Unknown Verified 12/26/21 15:26 Home Medications Medication Instructions Recorded Confirmed Type aspirin 81 mg tablet 81 mg PO DAILY #30 tabs 03/19/19 04/21/22 History cholecalciferol (vitamin D3) 50 2,000 units PO DAILY 03/19/19 04/21/22 History mcg (2,000 unit) capsule vitamins A,C,N-ttom-rsvins 14,320 1 cap PO BID 05/02/21 04/21/22 History unit-226 mg-200 unit capsule (PreserVision AREDS) simvastatin 20 mg tablet 20 mg PO DAILY #90 tabs 08/12/21 04/21/22 Rx escitalopram oxalate 5 mg tablet 5 mg PO DAILY #90 tabs 11/04/21 04/21/22 Rx (Lexapro) propranolol 60 mg capsule,24 60 mg PO DAILY #90 caps 03/10/22 04/21/22 Rx hr,extended release losartan 50 mg tablet 100 mg PO DAILY 04/21/22 04/21/22 History Patient History Medical History (Updated 04/21/22 @ 13:38 by Jacobo Chou DO) Acute sinusitis External carotid artery stenosis Fatigue Granulocytopenia Hypercalcemia Left thigh pain Low back ache Myofascial muscle pain Seborrheic keratosis Telangiectasia Surgical History History of cataract surgery Family History Brother Myocardial infarction Denies family history of Ovarian cancer Prostate cancer Breast cancer Colorectal cancer Social History Smoking Status: Never smoker Second Hand Exposure: No; Hx Alcohol Use: No Hx Substance Use: No Preferred Language: [place]an Communication Ability: Effective 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 HEENT exam is negative. Neck is supple with full carotid upstrokes. No carotid bruits. No jugular venous distention. There is no thyromegaly. Cardiovascular exam reveals an irregularly irregular rhythm with distant heart sounds. No obvious murmurs are noted. Lungs are clear without rales, rhonchi or wheezes. Abdomen is soft without bruits. Extremities reveal intact radial artery pulses bilaterally. There is no peripheral edema. Results & Data ([facility]) Vital Signs (Past 12 Hours) Vital Signs Temp Pulse Pulse Resp BP BP Pulse Ox 04/21/22 15:45 04/21/22 13:38 79 16 128/86 100 04/21/22 13:38 81 18 143/73 H 100 04/21/22 12:43 79 15 127/75 96 04/21/22 11:11 146 H 16 95 04/21/22 09:35 119 H 18 96/66 L 96 04/21/22 09:17 04/21/22 09:17 165 H 19 96 04/21/22 09:16 96 04/21/22 08:47 36.4 C L 117 H 20 126/80 99 O2 Del Method 04/21/22 15:45 Room Air 04/21/22 13:38 Room Air 04/21/22 13:38 Room Air 04/21/22 12:43 04/21/22 11:11 Room Air 04/21/22 09:35 Room Air 04/21/22 09:17 Room Air 04/21/22 09:17 04/21/22 09:16 Room Air 04/21/22 08:47 Room Air Laboratory Results CBC notes hemoglobin 15.2, hematocrit 46.7, white count 9.07, and platelet count of [id number]. Electrolytes note a sodium 140, potassium 4.1, chloride 104, bicarb with 30, BUN 23, and a creatinine of 1.01. High sensitivity troponin on presentation was 344.1 with a follow-up value 518.3. TSH is normal at 2.02. Diagnostic Findings EKG notes atrial fibrillation with a rapid ventricular response. There is a marked ST T-wave abnormality in the anterolateral and inferior leads. PG Care Time/CCT Total # of Minutes Spent Total Time Spent with Patient: Total time spent is greater than 50% in coordination of care (as documented) at patient's floor/unit and/or counseling patient: Coding Level of Care Code INT OBSERVATION CARE 70M LVL 3 Diagnoses Atrial fibrillation with RVR I48.91 Hypertension I10 Dyslipidemia E78.5
--- NOTE | 2022-04-21 16:43 | Electrocardiogram Report ---
Test Reason : Blood Pressure : / mmHG Vent. Rate : 164 BPM Atrial Rate : 159 BPM P-R Int : 000 ms QRS Dur : 086 ms QT Int : 288 ms P-R-T Axes : 000 -39 208 degrees QTc Int : 475 ms Poor data quality, interpretation may be adversely affected Atrial fibrillation with rapid ventricular response Left axis deviation Minimal voltage criteria for LVH, may be normal variant Septal infarct , age undetermined Marked ST abnormality, possible inferior subendocardial injury Marked ST abnormality, possible anterolateral subendocardial injury Abnormal ECG No previous ECGs available Confirmed by Trent Parada ([id number]) on 04/21/2022 4:43:30 PM Referred By: REFERRED SELF Confirmed By:Trent Parada
[2022-04-21] MEDS: APIXABAN 2.5 MG TAB PO SCH (20:06)
[2022-04-22 02:37] LABS: Appearance Urine Clear (Clear); Bacteria Urine Automated Negative (Negative); Bilirubin Urine Negative (Negative); Blood Urine 1+ (Negative); Cast Urine Automated 0 /lpf (0-5); Color Urine Yellow; Glucose Urine UA Negative (Negative); Ketones Urine Negative (Negative); Leukocyte Esterase Urine Negative (Negative); Nitrite Urine Negative (Negative); Protein Urine Negative (Negative); Specific Gravity Urine 1.012 (1.000-1.030); Urobilinogen Urine Negative (Negative); pH Urine 5.5 (4.5-7.5)
[2022-04-22 03:22] LABS: BUN Creatinine Ratio 20.9 (10-20); Calcium 9.3 mg/dl (8.5-10.1); Creatinine Clr Calc Pharmacy 39.6 ml/min; Est GFR (African American) 71.4 ml/min; Est GFR (Non-African American) 61.6 ml/min; Magnesium 1.6 mg/dl (1.7-2.4); Potassium 3.9 mmol/L (3.5-5.1)
[2022-04-22] MEDS: APIXABAN 2.5 MG TAB PO SCH ×2 (08:35→20:32)
[2022-04-22] MEDS: dilTIAZem HCL 30 MG TAB PO SCH (08:35)
[2022-04-22] MEDS: CHOLECALCIFEROL 1,000 UNITS 25 MCG TAB PO SCH (08:35)
[2022-04-22] MEDS: MULTIVITAMIN TAB PO SCH (08:35)
[2022-04-22] MEDS: ASPIRIN 81 MG ECTAB PO SCH (08:35)
[2022-04-22] MEDS: PROPRANOLOL HCL 60 MG LA CAP PO SCH (08:35)
[2022-04-22] MEDS: LOSARTAN POTASSIUM 50 MG TAB PO SCH (08:35)
[2022-04-22] MEDS: ESCITALOPRAM OXALATE 10 MG TAB PO SCH (08:35)
[2022-04-22] MEDS ORDERED: MAGNESIUM SULFATE / D5W 1 GM/100 ML BAG IV ONE (08:45)
[2022-04-22] MEDS ORDERED: SIMVASTATIN 20 MG TAB PO SCH (09:00)
[2022-04-22] MEDS ORDERED: ENOXAPARIN INJ 40 MG/0.4 ML SYR SQ SCH (09:00)
[2022-04-22] MEDS: dilTIAZem HCL 120 MG CAPCR PO SCH (09:49)
[2022-04-22] MEDS: dilTIAZem HCL 125 MG in DEXTROSE 5% 100 ML IV SCH ×2 (10:04→14:53)
--- NOTE | 2022-04-22 13:34 | Cardiology Progress Note ---
Date of Service April 22, 2022 Assessment & Plan (1) Atrial fibrillation with RVR: Plan: -the patient has been in atrial fibrillation most likely since Wednesday afternoon. -she has responded to intravenous diltiazem. -agree with initiating long-acting diltiazem at 120 mg daily -agree with Eliquis 2.5 mg b.i.d. (greater than 80 years of age, almost less than 60 kg). -echocardiogram notes normal left ventricular systolic function. (2) Hypertension: Plan: -controlled on current regimen. (3) Dyslipidemia: Plan: -continue simvastatin. Admission and Anticipated Discharge Date Admission Date: April 21, 2022 Subjective The patient is resting comfortably in bed without complaints of chest pain or dyspnea. She did note some palpitations last evening. Her son is at the bedside. Physical Exam Physical Exam: In general this is a well-developed well-nourished white female no acute distress. HEENT exam is negative. Neck is supple with full carotid upstrokes. No carotid bruits. No jugular venous distention. There is no thyromegaly. Cardiovascular exam reveals an irregularly irregular rhythm with distant heart sounds. No obvious murmurs are noted. Lungs are clear without rales, rhonchi or wheezes. Abdomen is soft without bruits. Extremities reveal intact radial artery pulses bilaterally. There is no peripheral edema. 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 PG Care Time/CCT Total # of Minutes Spent Total Time Spent with Patient: Total time spent is greater than 50% in coordination of care (as documented) at patient's floor/unit and/or counseling patient: Coding Level of Care Code 24175 Subseq Hosp Care Lvl 3 Diagnoses Atrial fibrillation with RVR I48.91 Hypertension I10 Dyslipidemia E78.5
--- NOTE | 2022-04-22 17:39 | Hospitalist Progress Note ---
Date of Service April 22, 2022 Assessment & Plan (1) Atrial fibrillation with RVR: Plan: Patient converted from A. fib to sinus rhythm she is on Cardizem CD120 after being on 30 every 6 overnight. She remains on propranolol. Cardiology saw the patient notes no new changes and echocardiogram recommends instituting e Eliquis 2.5 twice daily. Due to the patient's elevation of her troponins recommend observation for an additional day likely be discharged on 04/23/2022 if she is stable (2) Elevated troponin: Plan: Elevated troponin secondary to demand ischemia due to prolonged atrial fibrillat ion at home now downtrending no regional wall motion abnormality seen on echocardiogram (3) Paroxysmal SVT (supraventricular tachycardia): Plan: - Longstanding history, follows with cardiology. - She is maintained on propranolol 60 mg daily, no missed doses. Occasionally takes an extra dose for rapid HR. Did take one additional dose over the weekend without alleviation. - Cardiology consulted as above. (4) Benign essential tremor: Plan: - Maintained on propranolol. (5) Hypertension: Plan: - Continue losartan. (6) Dyslipidemia: Plan: - Continue simvastatin. (7) Hypercalcemia: Plan: - Elevated today at 10.9, and has been elevated on previous outpatient labs from this summer perp PCP note. - Last PTH and vitamin D were reportedly normal. - Continue to monitor. (8) Allergic rhinitis: Plan: - Continue Flonase, OTC medications as needed. (9) Depression: Plan: - Continue lexapro. Plan - Admit to PCU. - SCDS, Lovenox for VTE ppx. - Conditional Code--YES to CPR/defibrillation/ACLS protocl but does not want mechanical airway/intubation. Admission and Anticipated Discharge Date Admission Date: April 21, 2022 Subjective Patient feels much improved with heart rate control converting from diltiazem drip to long-acting diltiazem in addition to her propranolol. Cardiology recommends institution of Eliquis 2.5 mg twice daily patient is agreeable to this and this was sent to her pharmacy for gonzáles check and found be $47 a month. Review of Systems Review of Systems: Mild distress and fatigue no headache, no visual changes no speech or swallowing issues no chest pain, pressure or palpitations no shortness of breath, cough or wheezes no abdominal pain, nausea or vomiting, diarrhea or constipation no dysuria, hematuria or frequency no focal joint pain or swelling no back pain, CVA tenderness or radicular pain no bruising, bleeding or rashes no focal signs of weakness or numbness or altered sensation no complaints of anxiety or depression.. Physical Exam Physical Exam: The patient appeared well nourished and normally developed. Vital signs as documented. Head exam is normocephalic atraumatic Neck is without JVD, thyromegaly, or carotid bruits. Lungs are clear to auscultation, no focal loss of breath sounds Cardiac exam, Rhythm is regular.. No murmurs, rubs or gallops. Abdominal exam reveals normal bowel sounds, soft non tender, no masses Extremities are nonedematous and both pedal pulses are present Neurologic exam is alert and oriented, no focal loss of strength or sensation Skin is without bruises or rashes Psychologically is without concerns for anxiety or depression.. Results & Data Results & Data ([facility]) Vital Signs (Past 12 Hours) Vital Signs Temp Pulse Pulse Resp BP BP Pulse Ox 04/22/22 16:28 97.5 F L 54 L 16 122/61 95 04/22/22 15:17 81 04/22/22 11:24 97.3 F L 84 16 124/67 97 04/22/22 09:48 78 124/76 04/22/22 08:00 71 04/22/22 07:37 97.7 F 88 17 125/75 96 O2 Del Method 04/22/22 16:28 Room Air 04/22/22 15:17 04/22/22 11:24 Room Air 04/22/22 09:48 04/22/22 08:00 04/22/22 07:37 Room Air PG Care Time/CCT Total # of Minutes Spent Total Time Spent with Patient: Total time spent is greater than 50% in coordination of care (as documented) at patient's floor/unit and/or counseling patient: Coding Level of Care Code 25069 Subseq Hosp Care Lvl 3 Diagnoses Atrial fibrillation with RVR I48.91 Elevated troponin R77.8 Paroxysmal SVT (supraventricular tachycardia) I47.1 Benign essential tremor G25.0 Hypertension I10 Dyslipidemia E78.5 Hypercalcemia E83.52 Allergic rhinitis J30.9 Depression F32.9
[2022-04-23] MEDS: dilTIAZem HCL 120 MG CAPCR PO SCH (07:58)
[2022-04-23] MEDS: PROPRANOLOL HCL 60 MG LA CAP PO SCH (07:58)
[2022-04-23] MEDS: APIXABAN 2.5 MG TAB PO SCH (08:08)
[2022-04-23] MEDS: ESCITALOPRAM OXALATE 10 MG TAB PO SCH (08:08)
[2022-04-23] MEDS: CHOLECALCIFEROL 1,000 UNITS 25 MCG TAB PO SCH (08:08)
[2022-04-23] MEDS: ASPIRIN 81 MG ECTAB PO SCH (08:08)
[2022-04-23] MEDS: LOSARTAN POTASSIUM 50 MG TAB PO SCH (08:08)
[2022-04-23] MEDS: MULTIVITAMIN TAB PO SCH (08:08)
--- NOTE | 2022-04-23 17:40 | Discharge Summary ---
Date of Service April 23, 2022 Admission HPI Per Admitting Provider Avelina Esposito is an 87-year-old female the past medical history of paroxysmal SVT, hypertension, dyslipidemia, depression, and hypercalcemia who is presenting today with 4 days of palpitations and shortness of breath. Symptoms began on Wednesday 04/18 when she noticed her heart seemed to be beating fast and erratically which she believed to be her paroxysmal SVT. She tried to take an extra dose of the propranolol which she typically does to break this, but did not have alleviation of her symptoms. The palpitations have persisted despite taking her propranolol as scheduled in addition to 1 extra dose, and she became progressively short of breath reportedly 4-5 steps throughout her home. At baseline she is independent and cleans her home and cares for self without ever experiencing chest pain or shortness of breath, however it is not uncommon for her to go into what she perceives to be SVT 12 times/month. She has not had any fever, chills, body aches, cough, abdominal pain, nausea, vomiting, or d ysuria but does feel generally rundown. Upon presentation to the ED, she had an HR in the 170s, otherwise vital signs wnl. Her troponin is elevated at 344, otherwise labs largely unrevealing. COVID-negative. CXR with cardiomegaly, no acute disease process noted. She was given 500 cc NSS bolus, started on a diltiazem drip, and given full dose aspirin in the ED. Principal Diagnosis A. fib newly diagnosed Discharge Exam The patient was seen around 5:30 PM. She was walking around her room. She was reading a book and newspaper earlier in the day according to her sons who were at her bedside.. Denied chest pain palpitations or dizziness. Palpitations had gone on for 3 days when she presented to this hospital. No passing out Well looking Oral mucosa moist Chest rotation CVS S1-S2 regular rate rhythm telemetry showed normal sinus rhythm in the 60s Gait normal Abdomen nontender Extremities no edema TELEMETRY RN normal gait, no tremor noticed. Discharge Data Allergies Allergy/AdvReac Type Severity Reaction Status Date / Time No Known Drug Allergies AdvReac Unknown Verified 12/26/21 15:26 Consultations 04/21/22 10:34 ED Decision to Admit Stat 04/21/22 12:48 Consult Cardiology Routine Hospital Course (1) Atrial fibrillation with RVR: Patient converted from A. fib to sinus rhythm she is on Cardizem CD120 after being on 30 every 6 overnight. She remains on propranolol. Cardiology saw the patient notes no new changes and echocardiogram recommends instituting e Eliquis 2.5 twice daily. Due to the patient's elevation of her troponins recommend observation for an additional day and discharged on 04/23/2022 if she is stable (2) Elevated troponin: Elevated troponin secondary to demand ischemia due to prolonged atrial fibrillation at home now downtrending no regional wall motion abnormality seen on echocardiogram Troponin went from a peak of about 800 to 556 yesterday. Demand ischemia from a A. fib with RVR for a few days was presumed. Chest pain-free. (3) Paroxysmal SVT (supraventricular tachycardia): - Longstanding history, follows with cardiology. - She is maintained on propranolol 60 mg daily, no missed doses. Occasionally takes an extra dose for rapid HR. Did take one additional dose over the weekend without alleviation. - Cardiology consulted as above. (4) Benign essential tremor: - Maintained on propranolol. (5) Hypertension: - Continue losartan. Add propranolol. Diltiazem added here. (6) Dyslipidemia: - Continue simvastatin. (7) Hypercalcemia: - Elevated today at 10.9, and has been elevated on previous outpatient labs from this summer perp PCP note. - Last PTH and vitamin D were reportedly normal. - Continue to monitor. (8) Allergic rhinitis: - Continue Flonase, OTC medications as needed. (9) Depression: - Continue lexapro. Mood seems good. Is an avid reader. Plan Discharged has PCP follow-up in a couple of weeks which she is to keep. Lives alone at home and is independent. 22 years ago. 2 sons in the area who are in the room at time of discharge. I have messaged who will arrange follow up in his clinic. The patient has an appointment with him next month she thinks. - Conditional Code--YES to CPR/defibrillation/ACLS protocol but does not want mechanical airway/intubation. I picked up the patient's care on the day of discharge and did not address this. Total Time Total Time Spent Total Time Spent (In Minutes): 32 Discharge Plan Discharge Items Patient Disposition: Home - Self-Care Reason For Visit: AFIB RVR Discharge Diagnosis: A. fib with RVR, history of SVT follows with cardiology, Activity: Resume your previous activity Non-emergency contact: Primary Care Provider Call non-emergency contact if: you have any medication questions Follow-up/Referrals: [place] CRNP [Primary Care Provider] - Diet: Heart Healthy Addtl Attending Provider Instructions: Seek medical attention if you have dizziness/weakness and palpitations Pending Studies at Discharge: No Stand-Alone Forms: My [facility], Smoking Cessation Medications and DC Order Prescriptions: New Eliquis 2.5 mg tablet 2.5 mg PO BID Qty: 60 5RF diltiazem HCl [Cardizem CD] 120 mg Capsule,Extended Release 24hr 120 mg PO QAM Qty: 30 0RF Eliquis 2.5 mg Tablet 2.5 mg PO BID Qty: 60 0RF Continued simvastatin 20 mg tablet 20 mg PO DAILY Qty: 90 3RF propranolol 60 mg capsule,extended release 24 hr 60 mg PO DAILY Qty: 90 3RF PreserVision AREDS [id number] ldqa-sp-[id number] capsule 1 cap PO BID aspirin 81 mg tablet 81 mg PO DAILY Qty: 30 cholecalciferol (vitamin D3) 2,000 unit capsule 2,000 units PO DAILY escitalopram oxalate [Lexapro] 5 mg tablet 5 mg PO DAILY Qty: 90 3RF losartan 50 mg tablet 100 mg PO DAILY Discharge Orders: Discharge Order (Routine); Ordered 04/23/22 Ordered By: Brady Washington Admission Data Admit Date/Time: 04/21/22 11:01 Attending Provider: Brady Washington Admit Provider: Anthony Hawkins Primary Care Provider: [place] Other Providers: Anthony Hawkins ; Trent Parada Coding Level of Care Code D/C DAY MANAGEMENT >30 MINS Diagnoses Atrial fibrillation with RVR I48.91 Elevated troponin R77.8 Paroxysmal SVT (supraventricular tachycardia) I47.1 Benign essential tremor G25.0 Hypertension I10 Dyslipidemia E78.5 Hypercalcemia E83.52 Allergic rhinitis J30.9 Depression F32.9
== END 2022-04-23 18:47 | disposition home or self-care (01) | DRG 309 ==
LOC: ED 08:29 → EDINP 11:01 → SUATTDRO 11:01 → 4W 12:48

== ENCOUNTER 2022-07-20 18:08 | Inpatient (IN) ==
--- NOTE | 2022-07-20 18:21 | ED Triage Note ---
Date of Service July 20, 2022 History of Present Illness This patient was briefly evaluated while in triage. An abbreviated physical exam was performed. This patient is a 87-year-old Female who presents to the ED for evaluation of heart racing since 6:30 am this morning. Has history of A fib, has not missed medication. No chest pain. Having SOB with exertion. No cough, sore throat, fever. Physical Exam CONSTITUTIONAL: No acute distress. Well appearing. RESPIRATORY: Clear to auscultation bilaterally. Equal expansion bilaterally. CARDIOVASCULAR: Tachycardic, irregular rate and rhythm with no murmurs, rubs or gallops. Normal peripheral perfusion. NEUROLOGIC: Alert and oriented X 4 with normal affect. Initial orders for labs and / or imaging were placed and patient was placed in the waiting area until a bed is available. Please see further documentation for the full ED course.
[2022-07-20] MEDS ORDERED: METOPROLOL TARTRATE 1 MG/ML VIAL IV STA (18:38)
[2022-07-20] MEDS ORDERED: SODIUM CHLORIDE 0.9% 500 ML IV STA (18:38)
[2022-07-20] MEDS ORDERED: METOPROLOL TARTRATE 1 MG/ML VIAL IV ONE (18:39)
[2022-07-20] MEDS ORDERED: dilTIAZem HCl 5 MG/ML 5 ML VIAL IV ONE (18:46)
[2022-07-20] MEDS ORDERED: dilTIAZem HCl 5 MG/ML 5 ML VIAL IV STA (18:47)
[2022-07-20] MEDS ORDERED: STAT IV Infusion **Titration per Protocol STA (18:48)
--- NOTE | 2022-07-20 18:59 | Emergency Department Note ---
History of Present Illness General Chief Complaint: Tachycardia Stated Complaint: HEART PALPITATIONS,TACHYCARDIA Time Seen by Provider: 07/20/22 18:35 History of Present Illness Provider Complaint: + palpitations Time: 06:30 Duration: + Constant and + Worsening Severity: similar to previous episodes Context: + occurred during rest Arrhythmia history: + atrial fibrillation Associated symptoms: no chest pain, no shortness of breath, no syncope, no nausea, no vomiting or no diaphoresis Treatments prior to arrival: + calcium channel ginger (Patient took an extra dose of diltiazem 120 mg extended release at 6:45 AM as 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 for heart rate above 100) Home Medications Medication Instructions Recorded Confirmed Type cholecalciferol (vitamin D3) 50 2,000 units PO DAILY 03/19/19 07/20/22 History mcg (2,000 unit) capsule vitamins A,C,T-frgv-malwsk 4,296 1 cap PO BID 05/02/21 07/20/22 History mcg-226 mg-90 mg capsule (PreserVision AREDS) simvastatin 20 mg tablet 20 mg PO DAILY #90 tabs 08/12/21 07/20/22 Rx escitalopram oxalate 5 mg tablet 5 mg PO DAILY #90 tabs 11/04/21 07/20/22 Rx (Lexapro) propranolol 60 mg capsule,24 60 mg PO DAILY #90 caps 03/10/22 07/20/22 Rx hr,extended release losartan 50 mg tablet 50 mg PO DAILY 04/21/22 07/20/22 History apixaban 2.5 mg tablet (Eliquis) 2.5 mg PO BID #60 tabs 04/23/22 07/20/22 Rx diltiazem HCl 120 mg 120 mg PO QAM #30 caps 04/24/22 07/20/22 Rx capsule,extended release 24 hr (Cardizem CD) doxazosin 1 mg tablet 1 mg PO DAILY #30 tabs 06/26/22 07/20/22 Rx aspirin 81 mg tablet,delayed 81 mg PO DAILY 07/20/22 07/20/22 History release Allergies Allergy/AdvReac Type Severity Reaction Status Date / Time No Known Drug Allergies AdvReac Unknown Unknown Verified 07/20/22 20:27 Past Med/Surg History Medical History Acute sinusitis External carotid artery stenosis Fatigue Granulocytopenia Hypercalcemia Left thigh pain Low back ache Myofascial muscle pain Seborrheic keratosis Telangiectasia Surgical History History of cataract surgery Family History Brother Myocardial infarction Denies family history of Ovarian cancer Prostate cancer Breast cancer Colorectal cancer Social History Smoking Status: Never smoker Second Hand Exposure: No; Hx Alcohol Use: No Hx Substance Use: No Preferred Language: [place] Communication Ability: Effective Front Desk Receptionist Required: No Beliefs That Will Affect Care: None marital status: / Current Living Situation: Family current occupational status: retired Feels Safe at Home: Yes Childhood Exposure to Second-Hand Smoke: Yes caffeine: Yes Dental Care, Regularly: Yes Physical Activity Frequency: Does not Exercise Seatbelt Use: always Sunscreen Use: Yes Assistive Devices: None Physical Exam Vital Signs: Vital Signs - 24 hr 07/20/22 18:17 07/20/22 18:41 07/20/22 18:39 Temperature 36.3 C L Temperature Source Temporal Artery Sc an Pulse Rate 135 H 138 H Pulse Rate [Left F alvina] Pulse Rhythm [Left Finger] Respiratory Rate 20 Respiratory Effort / Characteristics Non-Labored Respiratory Depth Normal Blood Pressure 111/78 132/90 Blood Pressure [Le ft Arm] Blood Pressure Masha n 89 Blood Pressure Masha n [Left Arm] Pulse Oximetry 98 98 Oxygen Delivery Me thod Room Air Room Air Sepsis Recent Feve r Within 48 Hours No Sepsis New/Unexpla ined Change in Men perry Status No Sepsis Action Take n by Nursing No Action Required 07/20/22 18:47 07/20/22 18:50 07/20/22 18:55 Temperature Temperature Source Pulse Rate 151 H 91 H 80 Pulse Rate [Left F alvina] Pulse Rhythm [Left Finger] Respiratory Rate 19 18 23 Respiratory Effort / Characteristics Respiratory Depth Blood Pressure 120/61 123/77 Blood Pressure [Le ft Arm] Blood Pressure Masha n 80 92 Blood Pressure Masha n [Left Arm] Pulse Oximetry 97 98 98 Oxygen Delivery Me thod Room Air Room Air Room Air Sepsis Recent Feve r Within 48 Hours Sepsis New/Unexpla ined Change in Men perry Status Sepsis Action Take n by Nursing 07/20/22 19:00 07/20/22 19:02 07/20/22 19:10 Temperature Temperature Source Pulse Rate 121 H 146 H Pulse Rate [Left F alvina] 94 H Pulse Rhythm [Left Finger] Respiratory Rate 15 20 Respiratory Effort / Characteristics Non-Labored Respiratory Depth Normal Blood Pressure 153/83 H Blood Pressure [Le ft Arm] 126/81 Blood Pressure Masha n 106 Blood Pressure Masha n [Left Arm] 96 Pulse Oximetry 98 98 Oxygen Delivery Me thod Room Air Room Air Sepsis Recent Feve r Within 48 Hours Sepsis New/Unexpla ined Change in Men perry Status Sepsis Action Take n by Nursing 07/20/22 19:12 07/20/22 19:25 07/20/22 19:35 Temperature Temperature Source Pulse Rate 71 Pulse Rate [Left F alvina] 86 78 Pulse Rhythm [Left Finger] Irregular Respiratory Rate 16 16 Respiratory Effort / Characteristics Respiratory Depth Blood Pressure Blood Pressure [Le ft Arm] 125/64 129/76 Blood Pressure Masha n Blood Pressure Masha n [Left Arm] 84 93 Pulse Oximetry 97 97 Oxygen Delivery Me thod Room Air Room Air Sepsis Recent Feve r Within 48 Hours Sepsis New/Unexpla ined Change in Men perry Status Sepsis Action Take n by Nursing 07/20/22 19:50 07/20/22 20:05 07/20/22 20:20 Temperature Temperature Source Pulse Rate Pulse Rate [Left F alvina] 125 H 90 114 H Pulse Rhythm [Left Finger] Respiratory Rate 16 16 18 Respiratory Effort / Characteristics Non-Labored Respiratory Depth Normal Blood Pressure Blood Pressure [Le ft Arm] 127/83 143/87 H 136/87 Blood Pressure Masha n Blood Pressure Masha n [Left Arm] 97 105 103 Pulse Oximetry 97 97 98 Oxygen Delivery Me thod Room Air Room Air Room Air Sepsis Recent Feve r Within 48 Hours Sepsis New/Unexpla ined Change in Men perry Status Sepsis Action Take n by Nursing 07/20/22 20:32 07/20/22 20:40 07/20/22 20:51 Temperature Temperature Source Pulse Rate Pulse Rate [Left F alvina] 110 H 120 H 108 H Pulse Rhythm [Left Finger] Respiratory Rate 16 20 16 Respiratory Effort / Characteristics Non-Labored Non-Labored Respiratory Depth Normal Normal Blood Pressure Blood Pressure [Le ft Arm] 126/56 L 132/81 130/99 Blood Pressure Masha n Blood Pressure Masha n [Left Arm] 79 98 109 Pulse Oximetry 97 97 98 Oxygen Delivery Me thod Room Air Room Air Room Air Sepsis Recent Feve r Within 48 Hours Sepsis New/Unexpla ined Change in Men perry Status Sepsis Action Take n by Nursing 07/20/22 21:10 07/20/22 21:21 07/20/22 21:55 Temperature Temperature Source Pulse Rate Pulse Rate [Left F alvina] 90 90 92 H Pulse Rhythm [Left Finger] Respiratory Rate 16 16 16 Respiratory Effort / Characteristics Non-Labored Respiratory Depth Normal Blood Pressure Blood Pressure [Le ft Arm] 135/70 124/60 117/67 Blood Pressure Masha n Blood Pressure Masha n [Left Arm] 91 81 83 Pulse Oximetry 98 97 97 Oxygen Delivery Me thod Room Air Room Air Sepsis Recent Feve r Within 48 Hours Sepsis New/Unexpla ined Change in Men perry Status Sepsis Action Take n by Nursing 07/20/22 22:15 Temperature Temperature Source Pulse Rate Pulse Rate [Left F alvina] 76 Pulse Rhythm [Left Finger] Respiratory Rate 14 Respiratory Effort / Characteristics Non-Labored Respiratory Depth Normal Blood Pressure Blood Pressure [Le ft Arm] 125/97 Blood Pressure Masha n Blood Pressure Masha n [Left Arm] 106 Pulse Oximetry 99 Oxygen Delivery Me thod Room Air Sepsis Recent Feve r Within 48 Hours Sepsis New/Unexpla ined Change in Men perry Status Sepsis Action Take n by Nursing Physical Exam: Physical Exam GENERAL: oriented to person, place, and time. appears well-developed and well-nourished. HENT: Exam performed. - Head: Normocephalic and atraumatic. EYES: Conjunctivae and EOM are normal. Right eye exhibits no discharge. Left eye exhibits no discharge. No scleral icterus. NECK: Normal range of motion. Neck supple. No JVD present. CV: Tachycardic rate, irregular rhythm, normal heart sounds and intact distal pulses. There is no peripheral edema. Palpable radial pulses bue. PULM/CHEST: Effort normal and breath sounds normal. No respiratory distress. No stridor. no wheezes. no rales. ABD: The abdomen is soft. There is no tenderness. NEURO: Motor and sensation grossly intact. SKIN: Skin is warm and dry. He is not diaphoretic. PSYCH: normal mood and affect. Behavior is normal. Judgment and thought content normal. Course Course 183: The patient was evaluated in room B1. A complete history and physical exam was performed Cardiac monitoring: An order was placed for continuous cardiac monitoring. The monitor shows a rate of 140 with atrial fibrilation rhythm interpreted by me Initial EKG from triage area computer interpretation did read a STEMI however patient does not have any chest pain difficulty breathing we will try to control the patient's ventricular rate and then reassess with repeat EKGs. Patient appeared to be in atrial fibrillation. Metoprolol 5 mg IV push was given to the patient which did not significantly improve her heart rate and only went down into the 130s. Patient was subsequently given a Cardizem bolus of 15 mg IV push which did improve her heart rate. We will continue to watch the patient to see if her ventricular rate remains in a controlled manner or if the patient converts into a sinus rhythm. 1954: Patient's heart rate consistently in the 120s to 130s. Patient started on Cardizem drip that was ordered. 2009: Vital signs stable on Cardizem drip. Labs are within normal limits with the exception of a mildly elevated troponin of 35.3. Patient reports no chest pain or difficulty breathing at this time. Patient will be admitted to the [facility]ist team. Administered Medications Diltiazem HCl 125 mg/ Dextrose 125 mls @ 5 mls/hr IV .Q24H [facility]; Protocol Stop: 08/19/22 18:59 Last Admin: 07/20/22 19:57 Dose: 5 mg/hr, 5 mls/hr Documented By: TERESA Co-signed By: AVERY Discontinued Medications Diltiazem HCl (Diltiazem Hcl 5 Mg/Ml 5 Ml Vial) Confirm Administered Dose 25 mg IV .STK-MED ONE Stop: 07/20/22 18:47 Last Increment: 07/20/22 18:47 Dose: 15 mg Documented By: JV Co-signed By: BONNIE Diltiazem HCl (Diltiazem Hcl 5 Mg/Ml 5 Ml Vial) 15 mg IV NOW STA Stop: 07/20/22 18:48 Last Admin: 07/20/22 18:49 Dose: Not Given Documented By: JV Sodium Chloride (Nss) 500 mls @ 999 mls/hr IV .Q31M STA Stop: 07/20/22 19:08 Last Infusion: 07/20/22 19:17 Dose: 0 mls/hr Documented By: Admin: 07/20/22 18:44 Dose: 999 mls/hr Documented By: JV Parenteral Electrolytes (Normosol-R) 250 mls @ 999 mls/hr IV .Q16M ONE Stop: 07/20/22 21:11 Last Infusion: 07/20/22 22:42 Dose: 0 mls/hr Documented By: Admin: 07/20/22 22:18 Dose: 999 mls/hr Documented By: NRAnne Metoprolol Tartrate (Metoprolol Tartrate 1 Mg/Ml Vial) Confirm Administered Dose 5 mg IV .STK-MED ONE Stop: 07/20/22 18:40 Last Admin: 07/20/22 18:44 Dose: Not Given Documented By: NH Metoprolol Tartrate (Metoprolol Tartrate 1 Mg/Ml Vial) 5 mg IV NOW STA Stop: 07/20/22 18:39 Last Admin: 07/20/22 18:41 Dose: 5 mg Documented By: JV Miscellaneous (Stat Iv Infusion Titration Per Protocol) 1 each N/A NOW STA Stop: 07/20/22 18:49 Last Admin: 07/20/22 19:04 Dose: Not Given Documented By: JV Medical Decision Making Home Medications Current Medication List: was personally reviewed by me Laboratory Data Attestation: I reviewed the patient's lab results. 07/20/22 18:32 Lab Results 07/20/22 07/20/22 07/20/22 Range/Units 18:32 18:32 18:32 WBC 5.80 (4.8-10.8) K/ul RBC 4.63 (4.20-5.40) M/uL Hgb 14.2 (12.0-16.0) g/dl Hct 43.4 (37.0-47.0) % MCV 93.7 (80.0-100.0) fL MCH 30.7 (25.0-34.0) pg MCHC 32.7 (32.0-36.0) g/dL RDW Std Deviation 43.8 (36.4-46.3) fL RDW Coeff of Elizabeth 12.8 (11.5-14.5) % Plt Count 195 (130-400) K/uL MPV 11.1 (9.4-12.4) fL Immature Gran % (Auto) 0.3 % Neut % (Auto) 63.2 % Lymph % (Auto) 25.2 % [place] % (Auto) 7.9 % Eos % (Auto) 2.4 % Baso % (Auto) 1.0 % Neut # (Auto) 3.66 (1.40-6.50) K/uL Lymph # (Auto) 1.46 (1.2-3.4) K/uL [place] # (Auto) 0.46 (0.11-0.59) K/uL Eos # (Auto) 0.14 (0-0.50) K/uL Baso # (Auto) 0.06 (0-0.2) K/uL Immature Gran # (Auto) 0.02 (0.01-0.20) K/uL PT 11.4 (9.0-12.0) Seconds INR 1.1 (0.9-1.1) APTT 32.6 H (21.0-31.0) Seconds PTT Ratio 1.2 Sodium 141 (136-145) mmol/L Potassium 4.5 (3.5-5.1) mmol/L Chloride 106 (98-107) mmol/L Carbon Dioxide 28 (21-32) mmol/L Anion Gap 7 (3-11) BUN 13 (6-23) mg/dl Creatinine 0.93 (0.6-1.2) mg/dl Est Cr Clr Drug Dosing 36.2 ml/min Est GFR ( Amer) 65.0 ml/min Est GFR (Non-Af Amer) 56.0 ml/min BUN/Creatinine Ratio 14.0 (10-20) Glucose 120 H (70-99(Fasting)) mg/dl Calcium 10.4 H (8.5-10.1) mg/dl Troponin I High Sens 35.3 H (0-14) pg/ml Lipase 14 (11-82) U/L SARS-CoV-2, RNA, NAAT (NEGATIVE) 07/20/22 Range/Units Unknown WBC (4.8-10.8) K/ul RBC (4.20-5.40) M/uL Hgb (12.0-16.0) g/dl Hct (37.0-47.0) % MCV (80.0-100.0) fL MCH (25.0-34.0) pg MCHC (32.0-36.0) g/dL RDW Std Deviation (36.4-46.3) fL RDW Coeff of Elizabeth (11.5-14.5) % Plt Count (130-400) K/uL MPV (9.4-12.4) fL Immature Gran % (Auto) % Neut % (Auto) % Lymph % (Auto) % [place] % (Auto) % Eos % (Auto) % Baso % (Auto) % Neut # (Auto) (1.40-6.50) K/uL Lymph # (Auto) (1.2-3.4) K/uL [place] # (Auto) (0.11-0.59) K/uL Eos # (Auto) (0-0.50) K/uL Baso # (Auto) (0-0.2) K/uL Immature Gran # (Auto) (0.01-0.20) K/uL PT (9.0-12.0) Seconds INR (0.9-1.1) APTT (21.0-31.0) Seconds PTT Ratio Sodium (136-145) mmol/L Potassium (3.5-5.1) mmol/L Chloride (98-107) mmol/L Carbon Dioxide (21-32) mmol/L Anion Gap (3-11) BUN (6-23) mg/dl Creatinine (0.6-1.2) mg/dl Est Cr Clr Drug Dosing ml/min Est GFR ( Amer) ml/min Est GFR (Non-Af Amer) ml/min BUN/Creatinine Ratio (10-20) Glucose (70-99(Fasting)) mg/dl Calcium (8.5-10.1) mg/dl Troponin I High Sens (0-14) pg/ml Lipase (11-82) U/L SARS-CoV-2, RNA, NAAT NEGATIVE (NEGATIVE) Imaging Data Attestation: I personally reviewed and interpreted this imaging study as follows: My Impression: Chest x-ray negative. Airway clear. No pneumothorax. No consolidation. Mild cardiomegaly No cephalization.. No free air under the diaphragm. No fractures of the skeletal structures. ECG Data Attestation: I personally reviewed and interpreted this ECG as follows: Additional Comments: EKG #1 at 1833: Atrial fibrillation with rate of 137 QRS [address] elevation in lead aVL aVR. Mild ST depression in lead III aVF. EKG #2 at 1845 status post Cardizem bolus: Atrial fibrillation with rate of 145 QRS and QTc intervals within normal limits no ST elevation or ST depression EKG #3 at 1848: Atrial fibrillation with rate of 117. QRS and QTc intervals within normal limits. No ST elevation or ST depression MDM Narrative 1835: The patient was evaluated in room B1. A complete history and physical exam was performed Cardiac monitoring: An order was placed for continuous cardiac monitoring. The monitor shows a rate of 140 with atrial fibrilation rhythm interpreted by me Initial EKG from triage area computer interpretation did read a STEMI however patient does not have any chest pain difficulty breathing we will try to control the patient's ventricular rate and then reassess with repeat EKGs. Patient appeared to be in atrial fibrillation. Metoprolol 5 mg IV push was given to the patient which did not significantly improve her heart rate and only went down into the 130s. Patient was subsequently given a Cardizem bolus of 15 mg IV push which did improve her heart rate. We will continue to watch the patient to see if her ventricular rate remains in a controlled manner or if the patient converts into a sinus rhythm. 1954: Patient's heart rate consistently in the 120s to 130s. Patient started on Cardizem drip that was ordered. 2009: Vital signs stable on Cardizem drip. Labs are within normal limits with the exception of a mildly elevated troponin of 35.3. Patient reports no chest pain or difficulty breathing at this time. Patient will be admitted to the [facility] Hospitalist team. Impression & Plan Atrial fibrillation with RVR Critical Care Time Critical Care Time: Yes Total Critical Care Time: 58 I have personally spent greater than 58 minutes of critical care time in the direct management of this patient. This includes bedside care, interpretation o f diagnostic studies, and testing, discussion with consultants, patient, and family members, and other required patient management activities. This 58 minutes is in excess of all separately billable procedures. Discharge Plan Visit Data Chief Complaint: Tachycardia Stated Complaint: HEART PALPITATIONS,TACHYCARDIA ED Provider: Bryon Botello Discharge Problem: Atrial fibrillation with RVR Patient Disposition: Admitted As Inpatient Forms Stand Alone Forms: My [facility] [address] Prescriptions Prescriptions: No Action simvastatin 20 mg tablet 20 mg PO DAILY Qty: 90 3RF propranolol 60 mg capsule,extended release 24 hr 60 mg PO DAILY Qty: 90 3RF diltiazem HCl [Cardizem CD] 120 mg capsule,extended release 24hr 120 mg PO QAM Qty: 30 0RF PreserVision AREDS [id number] otem-fi-ejvh capsule 1 cap PO BID doxazosin 1 mg tablet 1 mg PO DAILY Qty: 30 11RF cholecalciferol (vitamin D3) 2,000 unit capsule 2,000 units PO DAILY escitalopram oxalate [Lexapro] 5 mg tablet 5 mg PO DAILY Qty: 90 3RF losartan 50 mg tablet 50 mg PO DAILY Eliquis 2.5 mg Tablet 2.5 mg PO BID Qty: 60 0RF aspirin [Aspirin Low-Strength] 81 mg Tablet,Delayed Release (Dr/Ec) 81 mg PO DAILY Referrals Referrals: Ana [place] CRNP [Primary Care Provider] -
[2022-07-20] MEDS: dilTIAZem HCL 125 MG in DEXTROSE 5% 100 ML IV SCH ×2 (19:02→19:57)
[2022-07-20 19:04] LABS: Basophils # (auto) 0.06 K/uL (0-0.2); Eosinophils # (auto) 0.14 K/uL (0-0.50); Eosinophils % (auto) 2.4 %; Hematocrit (blood only) 43.4 % (37.0-47.0); Hemoglobin 14.2 g/dl (12.0-16.0); Immature Granulocytes # (auto) 0.02 K/uL (0.01-0.20); Immature Granulocytes % (auto) 0.3 %; Lymphocytes # (auto) 1.46 K/uL (1.2-3.4); Lymphocytes % (auto) 25.2 %; Mean Corpuscular Hemoglobin 30.7 pg (25.0-34.0); Mean Corpuscular Hgb Conc 32.7 g/dL (32.0-36.0); Mean Corpuscular Volume 93.7 fL (80.0-100.0); Mean Platelet Volume 11.1 fL (9.4-12.4); Monocytes # (auto) 0.46 K/uL (0.11-0.59); Monocytes % (auto) 7.9 %; Neutrophils # (auto) 3.66 K/uL (1.40-6.50); Neutrophils % (auto) 63.2 %; Platelet Count 195 K/uL (130-400); RDW Coefficient of Variation 12.8 % (11.5-14.5); RDW Standard Deviation 43.8 fL (36.4-46.3); Red Blood Count 4.63 M/uL (4.20-5.40)
[2022-07-20 19:23] LABS: Troponin I High Sensitivity 35.3 pg/ml (0-14)
[2022-07-20 19:25] LABS: INR 1.1 (0.9-1.1); Partial Thromboplastin Ratio 1.2; Partial Thromboplastin Time 32.6 Seconds (21.0-31.0); Prothrombin Time 11.4 Seconds (9.0-12.0)
[2022-07-20 20:00] LABS: Calcium 10.4 mg/dl (8.5-10.1); Creatinine Clr Calc Pharmacy 36.2 ml/min; Potassium 4.5 mmol/L (3.5-5.1)
[2022-07-20] MEDS ORDERED: NORMOSOL-R 250 ML IV ONE (20:56)
--- NOTE | 2022-07-20 22:24 | History & Physical Report ---
Patient seen and examined. Discussed with resident the full plan and agree with assessment and plan found in the resident's note. Patient presents with atrial fibrillation with rapid ventricular rate to the emergency department. Patient was given IV metoprolol initially and subsequently was treated with IV bolus of Cardizem with minimal control of the heart rate, Patient was subsequently started on IV Cardizem infusion and subsequently the patient's heart rate improved to 90s from her initial heart rate of 120-130 Patient denies any acute chest pain at this time and initial high sensitive troponin was 34 likely secondary to demand ischemia Continue to monitor symptoms along with hemodynamics Date of Service July 20, 2022 Assessment & Plan (1) Atrial fibrillation with RVR: (2) Elevated troponin: (3) Hypercalcemia: (4) Depression: (5) Hypertension: (6) Dyslipidemia: Plan Avelina is a 87F with history of paroxysmal A Fib, chronic sinusitis, depression, paroxysmal SVT, essential tremor, HTN, and dyslipidemia who presents for evaluation of tachycardia and was found to have Atrial Fibrillation w/ RVR. AFib w/ RVR - Patient has known hx of paroxysmal atrial fibrillation - Awakened this morning with palpitations, not improved by home medications - EKG: Atrial Fibrillation w/ RVR (Rate 145) - CBC/CMP overall unremarkable, Magnesium pending - Echo 05/07: Normal systolic function with ejection fraction of 60-65%, mild LVH, mild to moderate mitral regurgitation and moderate tricuspid regurgitation. * Compared with the study performed in May 2021, no significant change - S/p Metoprolol 5 mg IV and Diltiazem 15 mg IV in ER w/ minimal benefit - Started on Diltiazem drip 5 mg/hr, continued on admission - Anticipate transition to PO in AM or when rate controlled Elevated Troponin - No active chest pain - Suspect a/w demand from tachycardia/arrhythmia - Troponin 35.3, trend to peak - Repeat pending Hypercalcemia - Asymptomatic - Hx of elevations (~10) - Currently 10.4, continue to monitor Depression - Continue home Escitalopram HTN - Continue home Losartan Dyslipidemia - Continue home Simvastatin Vitamin D Deficiency - Continue [facility] Vitamin D3 FEN: Heart Healthy Code status: Conditional DVT ppx: Home Eliquis Isolation: None Dispo:PCU/Tele ([facility]) History of Present Illness Chief Complaint: Tachycardia Primary Care Provider: SARAH Sanches Avelina is a 87F with history of paroxysmal A Fib, chronic sinusitis, depression, paroxysmal SVT, essential tremor, HTN, and dyslipidemia who presents for evaluation of tachycardia and was found to have Atrial Fibrillation w/ RVR. Patient notes that she woke up this morning around 6:30 with a skipping heart beats and throughout the course of the day, the beats felt more and more erratic and tachycardic so she came into the hospital. She notes that her heart beats so quickly that she feels like she is working out. She denies any chest pain, dyspnea, or pleurtic pain. She notes that these racing heart beats make her feel fatigued. She has not tried any new activities, medications, or foods. She does not drink alcohol or smoke cigarettes. She notes that prior to last year, she had primarily experienced paroxysmal SVT, but now she is experiencing Atrial Fibrillation and having lengthier episodes of palpitations. She has had episodes of palpitations for many years, but the episodes requiring hospitalizations have been over the last few months. Previously, they resolved independently w/o intervention. She has Propranolol and Diltiazem at home to use for these episodes, but she notes that they did not affect her symptoms today, so ultimately she came into the hospital. She denies any GI or symptoms and has not had any recent LE edema. ER Course: Patient received Metoprolol 5 mg IV w/o benefit, IV Diltiazem w/ mild benefit and then was started on Diltiazem drip Allergies Allergy/AdvReac Type Severity Reaction Status Date / Time No Known Drug Allergies AdvReac Unknown Unknown Verified 07/20/22 20:27 Home Medications Medication Instructions Recorded Confirmed Type cholecalciferol (vitamin D3) 50 2,000 units PO DAILY 03/19/19 07/20/22 History mcg (2,000 unit) capsule vitamins A,C,P-midp-iedase 4,296 1 cap PO BID 05/02/21 07/20/22 History mcg-226 mg-90 mg capsule (PreserVision AREDS) simvastatin 20 mg tablet 20 mg PO DAILY #90 tabs 08/12/21 07/20/22 Rx escitalopram oxalate 5 mg tablet 5 mg PO DAILY #90 tabs 11/04/21 07/20/22 Rx (Lexapro) propranolol 60 mg capsule,24 60 mg PO DAILY #90 caps 03/10/22 07/20/22 Rx hr,extended release losartan 50 mg tablet 50 mg PO DAILY 04/21/22 07/20/22 History apixaban 2.5 mg tablet (Eliquis) 2.5 mg PO BID #60 tabs 04/23/22 07/20/22 Rx diltiazem HCl 120 mg 120 mg PO QAM #30 caps 04/24/22 07/20/22 Rx capsule,extended release 24 hr (Cardizem CD) doxazosin 1 mg tablet 1 mg PO DAILY #30 tabs 06/26/22 07/20/22 Rx aspirin 81 mg tablet,delayed 81 mg PO DAILY 07/20/22 07/20/22 History release Past Med/Surg History Medical History Acute sinusitis External carotid artery stenosis Fatigue Granulocytopenia Hypercalcemia Left thigh pain Low back ache Myofascial muscle pain Seborrheic keratosis Telangiectasia Surgical History History of cataract surgery Family History Brother Myocardial infarction Denies family history of Ovarian cancer Prostate cancer Breast cancer Colorectal cancer Social History Smoking Status: Never smoker Second Hand Exposure: No; Hx Alcohol Use: No Hx Substance Use: No Preferred Language: Slovak Communication Ability: Effective 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 Beliefs That Will Affect Care: None marital status: / Current Living Situation: Family Current Living Situation Comment: Lives with son Vishal current occupational status: retired Feels Safe at Home: Yes Safety Concerns: Feels Safe At This Time Childhood Exposure to Second-Hand Smoke: Yes caffeine: Yes Dental Care, Regularly: Yes Physical Activity Frequency: Does not Exercise Seatbelt Use: always Sunscreen Use: Yes Assistive Devices: None Review of Systems Review of Systems: As per HPI Physical Exam Physical Exam: Gen: NAD, alert, interactive HEENT: Supple, no LAD, no thyromegaly, no JVD Resp:Non-labored, no wheezing/rhonchi/rales, CTAB CV:tachycardic, irregularly irregular, normal S1/S2, no M/R/G Abd: Soft, non-distended, no TTP, normoactive bowels, no masses Extr: 2+ dp bilaterally, no edema Skin: No rashes lesions or erythema Results & Data Results & Data ([facility]) Vital Signs (Past 12 Hours) Vital Signs Temp Pulse Pulse Resp BP BP Pulse Ox 07/20/22 21:55 92 H 16 117/67 97 07/20/22 21:21 90 16 124/60 97 07/20/22 21:10 90 16 135/70 98 07/20/22 20:51 108 H 16 130/99 98 07/20/22 20:40 120 H 20 132/81 97 07/20/22 20:32 110 H 16 126/56 L 97 07/20/22 20:20 114 H 18 136/87 98 07/20/22 20:05 90 16 143/87 H 97 07/20/22 19:50 125 H 16 127/83 97 07/20/22 19:35 78 16 129/76 97 07/20/22 19:25 86 16 125/64 97 07/20/22 19:12 71 07/20/22 19:10 94 H 20 126/81 98 07/20/22 19:02 146 H 07/20/22 19:00 121 H 15 153/83 H 98 07/20/22 18:55 80 23 123/77 98 07/20/22 18:50 91 H 18 120/61 98 07/20/22 18:47 151 H 19 97 07/20/22 18:39 98 07/20/22 18:41 138 H 132/90 07/20/22 18:17 36.3 C L 135 H 20 111/78 98 O2 Del Method 07/20/22 21:55 07/20/22 21:21 Room Air 07/20/22 21:10 Room Air 07/20/22 20:51 Room Air 07/20/22 20:40 Room Air 07/20/22 20:32 Room Air 07/20/22 20:20 Room Air 07/20/22 20:05 Room Air 07/20/22 19:50 Room Air 07/20/22 19:35 Room Air 07/20/22 19:25 Room Air 07/20/22 19:12 07/20/22 19:10 Room Air 07/20/22 19:02 07/20/22 19:00 Room Air 07/20/22 18:55 Room Air 07/20/22 18:50 Room Air 07/20/22 18:47 Room Air 07/20/22 18:39 Room Air 07/20/22 18:41 07/20/22 18:17 Room Air ECG Additional Comments: EKG: Atrial Fibrillation w/ RVR (Rate 145) Code Status & VTE Plan Code Status Conditional, discussed with patient, does not prefer to receive intubation. Wants to continue to discuss with family and physicians. Resident Activity Tracking Resident Involvement: Resident Care Provided Care Provided: Adult Hospital Medicine
[2022-07-21 00:24] LABS: Magnesium 1.9 mg/dl (1.7-2.4)
[2022-07-21 04:23] LABS: Hemoglobin 13.2 g/dl (12.0-16.0); Mean Corpuscular Hemoglobin 31.3 pg (25.0-34.0); Mean Corpuscular Hgb Conc 33.8 g/dL (32.0-36.0); Mean Corpuscular Volume 92.4 fL (80.0-100.0); Mean Platelet Volume 10.8 fL (9.4-12.4); Platelet Count 161 K/uL (130-400); RDW Coefficient of Variation 12.8 % (11.5-14.5); RDW Standard Deviation 43.6 fL (36.4-46.3); Red Blood Count 4.22 M/uL (4.20-5.40); White Blood Count 6.89 K/ul (4.8-10.8)
[2022-07-21 04:28] LABS: Albumin Globulin Ratio 1.6 (0.9-2); Albumin Level 3.9 gm/dl (3.4-5.0); BUN Creatinine Ratio 19.4 (10-20); Bilirubin,Total 0.6 mg/dl (0.2-1.0); Calcium 9.4 mg/dl (8.5-10.1); Creatinine Clr Calc Pharmacy 47.3 ml/min; Est GFR (African American) 88.5 ml/min; Est GFR (Non-African American) 76.4 ml/min; Globulin 2.4 gm/dl (2.5-4.0); Potassium 3.7 mmol/L (3.5-5.1); Total Protein 6.3 gm/dl (6.0-8.3)
[2022-07-21 06:13] LABS: Troponin I High Sensitivity 42.2 pg/ml (0-14)
--- NOTE | 2022-07-21 07:22 | XRay Report ---
XR chest 1V portable HISTORY: 87 years-old Female Chest pain, nonspecific acute chest pain COMPARISON: 05/06/2022 TECHNIQUE: AP view of the chest FINDINGS: Cardiac silhouette is enlarged. No pneumothorax, pleural effusion, airspace consolidation or overt pu lmonary edema. Degenerative changes of the shoulders and spine. Chronic appearing fracture deformity of the proximal right humerus. IMPRESSION: Cardiomegaly without acute process. ACT 112: Negative or not required by law. The above report was generated using voice recognition software. It may contain grammatical, syntax o r spelling errors. Electronically signed by: Geovany Langston M.D. 07/21/2022 7:21 AM
[2022-07-21] MEDS: ESCITALOPRAM OXALATE 10 MG TAB PO SCH (08:04)
[2022-07-21] MEDS: CHOLECALCIFEROL 1,000 UNITS 25 MCG TAB PO SCH (08:05)
[2022-07-21] MEDS: SIMVASTATIN 20 MG TAB PO SCH (08:05)
[2022-07-21] MEDS: ASPIRIN 81 MG ECTAB PO SCH (08:05)
[2022-07-21] MEDS: APIXABAN 2.5 MG TAB PO SCH ×2 (08:05→20:42)
[2022-07-21] MEDS ORDERED: DOXAZOSIN MESYLATE 1 MG TAB PO SCH (09:00)
[2022-07-21] MEDS ORDERED: LOSARTAN POTASSIUM 50 MG TAB PO SCH (09:00)
--- NOTE | 2022-07-21 10:52 | Hospitalist Progress Note ---
Date of Service July 21, 2022 Assessment & Plan (1) Atrial fibrillation with RVR: Plan: - Patient has known hx of paroxysmal atrial fibrillation - EKG: Atrial Fibrillation w/ RVR (Rate 145) - CBC/CMP overall unremarkable, Magnesium 1.9 - Echo 05/07: Normal systolic function with ejection fraction of 60-65%, mild LVH, mild to moderate mitral regurgitation and moderate tricuspid regurgitation. * Compared with the study performed in May 2021, no significant change - S/p Metoprolol 5 mg IV and Diltiazem 15 mg IV in ER w/ minimal benefit - Started on Diltiazem drip 5 mg/hr, continued on admission - titrated up to 10 mg/hr at present - Will plan to start on Lopressor 25mg BID, first dose now, HR presently 72 and BP 102/58 * moderate to high risk (2) Elevated troponin: Plan: - No active chest pain - Suspect myocardial demand ischemia from tachycardia/arrhythmia - Troponin 35.3, trend to peak - Repeat 42.2 - no significant increase, no need to trend further * moderate to high risk (3) Hypercalcemia: Plan: - Asymptomatic - Hx of elevations (~10) - Currently 10.4 on admit, repeat this AM is 9.4 * moderate risk (4) Depression: Plan: - Continue home Escitalopram (5) Hypertension: Plan: - Continued home Losartan and Cardura - Will hold both to allow for room in BP to titrate BB or CCB for rate control (6) Dyslipidemia: Plan: - Continue home Simvastatin Plan Continue to monitor on telemetry. Plan to be d/w Dr. Hawkins. Admission and Anticipated Discharge Date Admission Date: July 20, 2022 Subjective Patient was seen on rounds this morning. She is resting in bed, offers no complaints at present. Denies chest pain or dyspnea. Notes that she has had some intermittent chest fluttering/palpitations since coming in but none at present. Physical Exam Physical Exam: GENERAL: 87 yo wd/wn elderly WF. A&Ox4. NAD. LUNGS: Clear to auscultation bilaterally. CARDIOVASCULAR: Irregular rate and rhythm, 90-120 on the monitor Results & Data Results & Data ([facility]) Vital Signs (Past 12 Hours) Vital Signs Temp Pulse Pulse Resp BP Pulse Ox O2 Del Method 07/21/22 10:45 36.7 C 72 18 102/58 L 94 Room Air 07/21/22 10:33 96 H 96/58 L 07/21/22 08:51 130 H 07/21/22 07:53 36.5 C 69 18 126/71 96 Room Air 07/21/22 07:17 70 07/21/22 03:00 36.4 C L 70 16 103/78 97 Room Air 07/21/22 00:11 36.6 C 78 18 155/89 H 97 Room Air Laboratory Results 07/21/22 03:53 07/21/22 03:53 PG Care Time/CCT Total # of Minutes Spent Total Time Spent with Patient: Total time spent is greater than 50% in coordination of care (as documented) at patient's floor/unit and/or counseling patient: Coding Level of Care Code 56061 SUB INP/OBS CARE 3/50MIN Diagnoses Atrial fibrillation with RVR I48.91 Elevated troponin R77.8 Hypercalcemia E83.52 Depression F32.9 Hypertension I10 Dyslipidemia E78.5
[2022-07-21] MEDS ORDERED: METOPROLOL TARTRATE 25 MG TAB PO ONE (11:03)
--- NOTE | 2022-07-21 12:29 | Electrocardiogram Report ---
Test Reason : Blood Pressure : / mmHG Vent. 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
--- NOTE | 2022-07-21 12:30 | Electrocardiogram Report ---
Test Reason : Blood Pressure : / mmHG Vent. Rate : 145 BPM Atrial Rate : 147 BPM P-R Int : 000 ms QRS Dur : 090 ms QT Int : 308 ms P-R-T Axes : 000 049 140 degrees QTc Int : 478 ms Poor data quality, interpretation may be adversely affected Atrial fibrillation with rapid ventricular response Diffuse Nonspecific ST abnormality Abnormal ECG When compared with ECG of 20-JUL-2022 18:33, Atrial fibrillation has replaced Atrial flutter ST no longer depressed in Anterior leads Confirmed by Nick Krause ([id number]) on 07/21/2022 12:30:00 PM Referred By: REFERRED SELF Confirmed By:Nick Krause
[2022-07-21] MEDS: dilTIAZem HCL 125 MG in DEXTROSE 5% 100 ML IV SCH (14:14)
[2022-07-21] MEDS: METOPROLOL TARTRATE 25 MG TAB PO SCH (20:42)
[2022-07-22] MEDS: dilTIAZem HCL 125 MG in DEXTROSE 5% 100 ML IV SCH (06:51)
[2022-07-22] MEDS: APIXABAN 2.5 MG TAB PO SCH ×2 (07:44→20:28)
[2022-07-22] MEDS: CHOLECALCIFEROL 1,000 UNITS 25 MCG TAB PO SCH (07:44)
[2022-07-22] MEDS: METOPROLOL TARTRATE 25 MG TAB PO SCH ×2 (07:44→20:27)
[2022-07-22] MEDS: ASPIRIN 81 MG ECTAB PO SCH (07:44)
[2022-07-22] MEDS: ESCITALOPRAM OXALATE 10 MG TAB PO SCH (07:45)
[2022-07-22] MEDS: SIMVASTATIN 20 MG TAB PO SCH (07:45)
[2022-07-22] MEDS ORDERED: METOPROLOL TARTRATE 1 MG/ML VIAL IV ONE (08:03)
--- NOTE | 2022-07-22 08:08 | Hospitalist Progress Note ---
Date of Service July 22, 2022 Assessment & Plan (1) Atrial fibrillation with RVR: Plan: Afib w/ RVR in patient w/ hx PSVT/paroxysmal afib EKG on admit w/ Afib w/ RVR to 145bpm ECHO unchanged from prior -- Normal systolic function with ejection fraction of 60-65%, mild LVH, mild to moderate mitral regurgitation and moderate tricuspid regurgitation. Patient has known hx of paroxysmal atrial fibrillation TSH wnl Given metoprolol 5mg IV, diltiazem in ER w/ minimal benefit (of note, patient states was on metoprolol in the past before noted to switch to propranolol 60mg for what appears to be reported as tremor) Started Lopressor 25mg BID -- rates remained to 120-150s this morning, palpitations reported but no CP/SOB/lightheadedness/dizziness, BP 129/80 Given additional doses IV Lopressor for today, seen by Dr Parada and plans to start amiodarone bolus/gtt -- discussed this afternoon as not yet ordered and confirmed to place ordered Cardiology consulted Keep mag ~2, K ~4 -- replacement as needed Holding her propranolol, cadura in meantime to allow for BP/metoprolol adjustments Continue to monitor on telemetry Remains on reduced dose eliquis 2.5mg BID (2) Elevated troponin: Plan: Reporting NO chest pain Suspected myocardial demand ischemia from tachycardia/arrhythmia, trop peaked and trended down, no further need to trend echo w/o wma working on HR control as above EKG w/ CP (3) Hypercalcemia: Plan: Asymptomatic , hx of elevations and was 10.4 on admission-- appears on 2000IU vitamin D daily Will check Vit D w/ AM labs for further eval, check PTH if needed Ca 9.7 on AM labs (4) Depression: Plan: Continue home Escitalopram --> PLACED ON HOLD GIVEN THE AMIODARONE/INTERACTION (5) Hypertension: Plan: BP stable Continues on losartan 50mg daily metoprolol 25mg BID as above Holding home propranolol 60mg, diltiazem 120mg daily Amio gtt for afib/rvr as above (6) Dyslipidemia: Plan: Continue home Simvastatin Plan continued inpatient stay start amio bolus/gtt cards on consult, appreciate assistance Admission and Anticipated Discharge Date Admission Date: July 20, 2022 Supervising Physician Co-Signing Physician Notes Patient was not seen by me. The chart was reviewed. Case discussed with EDILMA Gonzalez. Agree with assessment and plan Subjective eval this morning, doing alright. no palpitations at present but they come/go. seen by Dr Parada this morning and she states going to start medication, possibly amiodarone. Discussed metoprolol and holding her propranolol. She notes she was on metoprolol in the past but then was switched to propranolol as she developed the shakes. Denies chest pain, lightheadedness/dizziness/blurry vision, nausea/vomiting. Discussed continued inpatient stay and monitoring on medications. Physical Exam Physical Exam: GENERAL: 87yo female, thin, sitting up in bed, NAD Psych: AOx3, pleasant and cooperative HEENT: head normocephalic, atraumatic, mmm, trachea midline LUNGS: CTA, no w/c, on room air 97% CARDIOVASCULAR: Irregular rate and rhythm, 90-140/150s on monitor, faint murmur, no pitting edema/calf tenderness GI: +BS, soft/NT Results & Data Results & Data ([facility]) Vital Signs (Past 12 Hours) Vital Signs Temp Pulse Resp BP Pulse Ox O2 Del Method 07/22/22 02:42 36.4 C L 87 18 126/71 96 Room Air 07/21/22 22:12 36.4 C L 96 H 18 112/61 97 Room Air Laboratory Results 07/22/22 07/22/22 Range/Units 08:20 08:20 Sodium 139 (136-145) mmol/L Potassium 3.7 (3.5-5.1) mmol/L Chloride 108 H (98-107) mmol/L Carbon Dioxide 25 (21-32) mmol/L Anion Gap 6 (3-11) BUN 20 (6-23) mg/dl Creatinine 0.83 (0.6-1.2) mg/dl Est Cr Clr Drug Dosing 41.0 ml/min Est GFR ( Amer) 74.5 ml/min Est GFR (Non-Af Amer) 64.3 ml/min BUN/Creatinine Ratio 24.1 H (10-20) Glucose 172 H (70-99(Fasting)) mg/dl Calcium 9.7 (8.5-10.1) mg/dl Magnesium 1.9 (1.7-2.4) mg/dl TSH 0.862 (0.300-4.500) uIu/ml PG Care Time/CCT Total # of Minutes Spent Total Time Spent with Patient: Total time spent is greater than 50% in coordination of care (as documented) at patient's floor/unit and/or counseling patient: Coding Level of Care Code 57629 SUB INP/OBS CARE 3/50MIN Diagnoses Atrial fibrillation with RVR I48.91 Elevated troponin R77.8 Hypercalcemia E83.52 Depression F32.9 Hypertension I10 Dyslipidemia E78.5
[2022-07-22] MEDS ORDERED: MAGNESIUM SULFATE / D5W 1 GM/100 ML BAG IV ONE (08:11)
[2022-07-22 09:05] LABS: BUN Creatinine Ratio 24.1 (10-20); Calcium 9.7 mg/dl (8.5-10.1); Est GFR (African American) 74.5 ml/min; Est GFR (Non-African American) 64.3 ml/min; Magnesium 1.9 mg/dl (1.7-2.4); Potassium 3.7 mmol/L (3.5-5.1)
[2022-07-22] MEDS ORDERED: POTASSIUM CHLORIDE CRTAB 20 MEQ TABCR PO STA (10:11)
[2022-07-22] MEDS ORDERED: AMIODARONE IV BOLUS & DRIP IV STA (12:19)
[2022-07-22] MEDS ORDERED: 0.2 MICRON FILTER SET 1 EACH IV STA (12:19)
[2022-07-22] MEDS ORDERED: STAT IV Infusion **Titration per Protocol STA (12:19)
[2022-07-22] MEDS ORDERED: AMIODARONE / D5W 150 MG/100 ML BAG IV STA (12:19)
[2022-07-22] MEDS ORDERED: AMIODARONE / D5W 360 MG/200 ML BAG IV ONE (12:30)
--- NOTE | 2022-07-22 13:00 | Cardiology Consultation ---
Date of Consultation July 22, 2022 Assessment & Plan (1) Atrial fibrillation with RVR: -ventricular response has been difficult to control. -would initiate intravenous amiodarone. -continue Eliquis. -minor elevation in high sensitivity troponin likely a supply demand mismatch. (2) Hypertension: -adequate control on current regimen. (3) Dyslipidemia: -continue simvastatin. History of Present Illness Attending Physician: Frank Troncoso MD History of Present Illness Mrs. Esposito is an 87-year-old female admitted on July 20 with atrial fibrillation and a rapid ventricular response. This consultation was ordered to assistance cardiac management. Of note, patient is well known to me from the outpatient setting. Patient was in her usual state of health until 6:30 a.m. on the day of presentation. While eating her breakfast, she had the abrupt onset of palpitations. There was no associated chest discomfort, dyspnea, diaphoresis, or fatigue. Her symptoms persisted throughout the morning and therefore, she presented to the emergency room for further care. She was diagnosed with paroxysmal atrial fibrillation back in April. She had a similar presentation at that time. She has been tolerating rate control and long-term anticoagulation without difficulty. Currently, patient is resting comfortably in bed, but does note persistent palpitations. Past medical and surgical history 1. Hypertension 2. Hypercholesterolemia 3. Symptomatic PACs/PVCs 4. Paroxysmal SVT 5. Paroxysmal atrial fibrillation-April 2022 6. Mild mitral regurgitation-May 2021 7. Essential tremor 8. Allergic rhinitis 9. Bilateral intra-ocular lens implants Social history , lives alone No tobacco alcohol Family history Noncontributory Review of systems Ten point review systems was undertaken and negative except that described above. Allergies Allergy/AdvReac Type Severity Reaction Status Date / Time No Known Drug Allergies AdvReac Unknown Unknown Verified 07/20/22 20:27 Home Medications Medication Instructions Recorded Confirmed Type cholecalciferol (vitamin D3) 50 2,000 units PO DAILY 03/19/19 07/20/22 History mcg (2,000 unit) capsule vitamins A,C,P-kesz-ogelyy 4,296 1 cap PO BID 05/02/21 07/20/22 History mcg-226 mg-90 mg capsule (PreserVision AREDS) simvastatin 20 mg tablet 20 mg PO DAILY #90 tabs 08/12/21 07/20/22 Rx escitalopram oxalate 5 mg tablet 5 mg PO DAILY #90 tabs 11/04/21 07/20/22 Rx (Lexapro) propranolol 60 mg capsule,24 60 mg PO DAILY #90 caps 03/10/22 07/20/22 Rx hr,extended release losartan 50 mg tablet 50 mg PO DAILY 04/21/22 07/20/22 History apixaban 2.5 mg tablet (Eliquis) 2.5 mg PO BID #60 tabs 04/23/22 07/20/22 Rx diltiazem HCl 120 mg 120 mg PO QAM #30 caps 04/24/22 07/20/22 Rx capsule,extended release 24 hr (Cardizem CD) doxazosin 1 mg tablet 1 mg PO DAILY #30 tabs 06/26/22 07/20/22 Rx aspirin 81 mg tablet,delayed 81 mg PO DAILY 07/20/22 07/20/22 History release Patient History Medical History Acute sinusitis External carotid artery stenosis Fatigue Granulocytopenia Hypercalcemia Left thigh pain Low back ache Myofascial muscle pain Seborrheic keratosis Telangiectasia Surgical History History of cataract surgery Family History Brother Myocardial infarction Denies family history of Ovarian cancer Prostate cancer Breast cancer Colorectal cancer Social History Smoking Status: Never smoker Second Hand Exposure: No; Hx Alcohol Use: No Hx Substance Use: No Preferred Language: Yemeni Communication Ability: Effective 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 HEENT exam is negative. Neck is supple with full carotid upstrokes. No carotid bruits. No jugular venous distention. There is no thyromegaly. Cardiovascular exam reveals an irregularly irregular rhythm with distant heart sounds. No obvious murmurs are noted. Lungs are clear without rales, rhonchi or wheezes. Abdomen is soft without bruits. Extremities reveal intact radial artery pulses bilaterally. There is no peripheral edema. Results & Data ([facility]) Vital Signs (Past 12 Hours) Vital Signs Temp Pulse Pulse Resp BP BP Pulse Ox 07/22/22 12:38 36.7 C 132 H 19 129/80 97 07/22/22 08:08 152 H 124/79 07/22/22 08:13 36.6 C 122 H 18 125/76 96 07/22/22 08:07 152 H 124/79 07/22/22 02:42 36.4 C L 87 18 126/71 96 O2 Del Method 07/22/22 12:38 Room Air 07/22/22 08:08 07/22/22 08:13 Room Air 07/22/22 08:07 07/22/22 02:42 Room Air Diagnostic Findings monitoring coordinator notes atrial fibrillation with a rapid ventricular response. PG Care Time/CCT Total # of Minutes Spent Total Time Spent with Patient: Total time spent is greater than 50% in coordination of care (as documented) at patient's floor/unit and/or counseling patient: Coding Level of Care Code 49884 INT INP/OBS CARE MIN Diagnoses Atrial fibrillation with RVR I48.91 Hypertension I10 Dyslipidemia E78.5
[2022-07-22] MEDS ORDERED: METOPROLOL TARTRATE 1 MG/ML VIAL IV STA (15:05)
[2022-07-22] MEDS: AMIODARONE / D5W 360 MG/200 ML BAG IV SCH (18:40)
[2022-07-23] MEDS: AMIODARONE / D5W 360 MG/200 ML BAG IV SCH (06:19)
[2022-07-23 06:59] LABS: BUN Creatinine Ratio 31.7 (10-20); Calcium 9.1 mg/dl (8.5-10.1); Creatinine Clr Calc Pharmacy 41.5 ml/min; Est GFR (African American) 75.6 ml/min; Est GFR (Non-African American) 65.3 ml/min; Magnesium 2.1 mg/dl (1.7-2.4)
--- NOTE | 2022-07-23 07:59 | Hospitalist Progress Note ---
Date of Service July 23, 2022 Assessment & Plan (1) Atrial fibrillation with RVR: Plan: Afib w/ RVR in patient w/ hx PSVT/paroxysmal afib EKG on admit w/ Afib w/ RVR to 145bpm ECHO unchanged from prior -- Normal systolic function with ejection fraction of 60-65%, mild LVH, mild to moderate mitral regurgitation and moderate tricuspid regurgitation. Patient has known hx of paroxysmal atrial fibrillation TSH wnl Given metoprolol 5mg IV, diltiazem in ER w/ minimal benefit (of note, patient states was on metoprolol in the past before noted to switch to propranolol 60mg for what appears to be reported as tremor) Started Lopressor 25mg BID -- rates remained to 120-150s this morning, palpitations reported but no CP/SOB/lightheadedness/dizziness, BP 129/80 Given additional doses IV Lopressor for today, seen by Dr Parada and plans to start amiodarone bolus/gtt -- discussed this afternoon as not yet ordered and confirmed to place ordered Cardiology consulted Keep mag ~2, K ~4 -- replacement as needed Holding her propranolol, cadura in meantime to allow for BP/metoprolol adjustments Continue to monitor on telemetry Remains on reduced dose eliquis 2.5mg BID (2) Elevated troponin: Plan: Reporting NO chest pain Suspected myocardial demand ischemia from tachycardia/arrhythmia, trop peaked and trended down, no further need to trend echo w/o wma working on HR control as above EKG w/ CP (3) Hypercalcemia: Plan: Asymptomatic , hx of elevations and was 10.4 on admission-- appears on 2000IU vitamin D daily Will check Vit D w/ AM labs for further eval, check PTH if needed Ca 9.7 on AM labs (4) Depression: Plan: Continue home Escitalopram --> PLACED ON HOLD GIVEN THE AMIODARONE/INTERACTION (5) Hypertension: Plan: BP stable Continues on losartan 50mg daily metoprolol 25mg BID as above Holding home propranolol 60mg, diltiazem 120mg daily Amio gtt for afib/rvr as above (6) Dyslipidemia: Plan: Continue home Simvastatin Plan continued inpatient stay start amio bolus/gtt cards on consult, appreciate assistance Admission and Anticipated Discharge Date Admission Date: July 20, 2022 Results & Data Results & Data ([facility]) Vital Signs (Past 12 Hours) Vital Signs Temp Pulse Resp BP Pulse Ox O2 Del Method 07/23/22 07:05 36.6 C 46 L 18 133/67 99 Room Air 07/23/22 04:33 36.6 C 48 L 18 113/65 97 Room Air 07/22/22 22:59 36.5 C 48 L 18 110/69 98 Room Air 07/22/22 19:59 55 L 137/72 Laboratory Results 07/23/22 07/23/22 07/22/22 Range/Units 06:13 06:13 08:20 Sodium 139 (136-145) mmol/L Potassium 4.0 (3.5-5.1) mmol/L Chloride 109 H (98-107) mmol/L Carbon Dioxide 27 (21-32) mmol/L Anion Gap 3 (3-11) BUN 26 H (6-23) mg/dl Creatinine 0.82 (0.6-1.2) mg/dl Est Cr Clr Drug Dosing 41.5 ml/min Est GFR ( Amer) 75.6 ml/min Est GFR (Non-Af Amer) 65.3 ml/min BUN/Creatinine Ratio 31.7 H (10-20) Glucose 95 (70-99(Fasting)) mg/dl Calcium 9.1 (8.5-10.1) mg/dl Magnesium 2.1 (1.7-2.4) mg/dl 25-OH Vitamin D Total 42.2 (30-100) ng/ml TSH 0.862 (0.300-4.500) uIu/ml 07/22/22 Range/Units 08:20 Sodium 139 (136-145) mmol/L Potassium 3.7 (3.5-5.1) mmol/L Chloride 108 H (98-107) mmol/L Carbon Dioxide 25 (21-32) mmol/L Anion Gap 6 (3-11) BUN 20 (6-23) mg/dl Creatinine 0.83 (0.6-1.2) mg/dl Est Cr Clr Drug Dosing 41.0 ml/min Est GFR ( Amer) 74.5 ml/min Est GFR (Non-Af Amer) 64.3 ml/min BUN/Creatinine Ratio 24.1 H (10-20) Glucose 172 H (70-99(Fasting)) mg/dl Calcium 9.7 (8.5-10.1) mg/dl Magnesium 1.9 (1.7-2.4) mg/dl 25-OH Vitamin D Total (30-100) ng/ml TSH (0.300-4.500) uIu/ml PG Care Time/CCT Total # of Minutes Spent Total Time Spent with Patient: Total time spent is greater than 50% in coordination of care (as documented) at patient's floor/unit and/or counseling patient: Coding Diagnoses Atrial fibrillation with RVR I48.91 Elevated troponin R77.8 Hypercalcemia E83.52 Depression F32.9 Hypertension I10 Dyslipidemia E78.5
[2022-07-23] MEDS: SIMVASTATIN 20 MG TAB PO SCH (08:21)
[2022-07-23] MEDS: APIXABAN 2.5 MG TAB PO SCH (08:21)
[2022-07-23] MEDS: CHOLECALCIFEROL 1,000 UNITS 25 MCG TAB PO SCH (08:21)
[2022-07-23] MEDS: ASPIRIN 81 MG ECTAB PO SCH (08:22)
[2022-07-23] MEDS: METOPROLOL TARTRATE 25 MG TAB PO SCH (09:27)
--- NOTE | 2022-07-23 11:01 | Discharge Summary ---
Date of Service July 23, 2022 Admission HPI Per Admitting Provider Avelina is a 87F with history of paroxysmal A Fib, chronic sinusitis, depression, paroxysmal SVT, essential tremor, HTN, and dyslipidemia who presents for evaluation of tachycardia and was found to have Atrial Fibrillation w/ RVR. Patient notes that she woke up this morning around 6:30 with a skipping heart beats and throughout the course of the day, the beats felt more and more erratic and tachycardic so she came into the hospital. She notes that her heart beats so quickly that she feels like she is working out. She denies any chest pain, dyspnea, or pleurtic pain. She notes that these racing heart beats make her feel fatigued. She has not tried any new activities, medications, or foods. She does not drink alcohol or smoke cigarettes. She notes that prior to last year, she had primarily experienced paroxysmal SVT, but now she is experiencing Atrial Fibrillation and having lengthier episodes of palpitations. She has had episodes of palpitations for many years, but the episodes requiring hospitalizations have been over the last few months. Previously, they resolved independently w/o intervention. She has Propranolol and Diltiazem at home to use for these episodes, but she notes that they did not affect her symptoms today, so ultimately she came into the hospital. She denies any GI or symptoms and has not had any recent LE edema. ER Course: Patient received Metoprolol 5 mg IV w/o benefit, IV Diltiazem w/ mild benefit and then was started on Diltiazem drip Admission Exam Per Admitting Provider Gen: NAD, alert, interactive HEENT: Tamela no LAD, no thyromegaly, no JVD Resp:Non-labored, no wheezing/rhonchi/rales, CTAB CV:tachycardic, irregularly irregular, normal S1/S2, no M/R/G Abd: Soft, non-distended, no TTP, normoactive bowels, no masses Extr: 2+ dp bilaterally, no edema Skin: No rashes lesions or erythema Principal Diagnosis Afib w RVR Discharge Exam GENERAL: 87yo female, thin, sitting up in bed, NAD Psych: AOx3, pleasant and cooperative HEENT: head normocephalic, atraumatic, mmm, trachea midline LUNGS: CTA, no w/c, on room air 97% CARDIOVASCULAR: regular rhythm, bradycardic (rates 40-50s), faint murmur, no pitting edema/calf tenderness GI: +BS, soft/NT MSK/Neuro: no focal deficit Psych: AOx3 , pleasant and cooperative Discharge Data Allergies Allergy/AdvReac Type Severity Reaction Status Date / Time No Known Drug Allergies AdvReac Unknown Unknown Verified 07/20/22 20:27 Consultations 07/20/22 20:10 ED Decision to Admit Stat 07/22/22 08:09 Consult Cardiology Routine Ordered Studies Chest X-Ray 07/20/22 18:39 XR chest 1V portable HISTORY: 87 years-old Female Chest pain, nonspecific acute chest pain COMPARISON: 05/06/2022 TECHNIQUE: AP view of the chest FINDINGS: Cardiac silhouette is enlarged. No pneumothorax, pleural effusion, airspace consolidation or overt pulmonary edema. Degenerative changes of the shoulders and spine. Chronic appearing fracture deformity of the proximal right humerus. IMPRESSION: Cardiomegaly without acute process. ACT 112: Negative or not required by law. The above report was generated using voice recognition software. It may contain grammatical, syntax or spelling errors. Electronically signed by: Geovany Langston M.D. 07/21/2022 7:21 AM Hospital Course (1) Atrial fibrillation with RVR: Afib w/ RVR in patient w/ hx PSVT/paroxysmal afib EKG on admit w/ Afib w/ RVR to 145bpm ECHO unchanged from prior -- Normal systolic function with ejection fraction of 60-65%, mild LVH, mild to moderate mitral regurgitation and moderate tricuspid regurgitation. Patient has known hx of paroxysmal atrial fibrillation Remains on eliquis 2.5mg BID, renally dosed TSH wnl Cardiology consulted Given metoprolol 5mg IV, diltiazem in ER w/ minimal benefit (of note, patient states was on metoprolol in the past before noted to switch to propranolol 60mg for what appears to be reported as tremor) Started Lopressor 25mg BID -- rates remained to 120-150s AM 07/22 and had palpitations but no CP/SOB/lightheaded/dizziness, BP was 129/80 Additional IV lopressor ordered and started on amiodarone gtt w/ conversion to NSR 07/22 around 1900 and remained in the 40-50s HR, asymptomatic Discussed with Dr Parada this morning and rec to transition to PO amiodarone, 200mg PO BID and decreased the metoprolol to 25mg BID for discharge Patient was hopeful for discharge and discussed w/ cards, ok to discharge and patient to mointor HRs at home and return to ER w/ any worsening symptoms/recurrance of palpitations (2) Elevated troponin: Reported NO chest pain Suspected myocardial demand ischemia from tachycardia/arrhythmia, trop peaked and trended down, no further need to trend working on HR control as above EKG w/ CP (3) Hypercalcemia: Asymptomatic , hx of elevations and was 10.4 on admission-- appears on 2000IU vitamin D daily Vitamin D not deficiency at 42.2 and rec f/u PCP for PTH/further testing if Ca remains elevated on any repeat testing Ca was 9.1 on labs prior to discharge (4) Depression: On lexapro, discontinued given interaction w/ amiodarone mood stable to f/u PCP if need for additional medication for depression but was pleasant and denied any issues at present (5) Hypertension: BP stable 148/66 Held diltiazem/propranolol on admit to allow for meds/adjusments Metoprolol 25mg BID added, increased on 07/22 w/ amio and since HRs in 40-50s since conversion discussed w/ cardiology and continued 25mg BID at discharge DISCONTINUED cardizem and her propranolol at discharge Resumed home cadura/losartan (held 07/22) Continues on losartan 50mg daily metoprolol 25mg BID as above (6) Dyslipidemia: Continued home Simvastatin Plan discharged home on amiodarone/metoprolol for rhythm/rate control monitor HRs at home outpt f/u Cardiology Total Time Total Time Spent Total Time Spent (In Minutes): 50 Discharge Plan Discharge Items Patient Disposition: Home - Self-Care Reason For Visit: AFIB RVR Discharge Diagnosis: Afib with RVR Goals: You have been hospitalized for an acute medical problem. During your stay at [facility], we have made an effort to correct the problem that brought you to the hospital while keeping you as comfortable as possible. Medications were used to bring your condition under control and your discharge instructions will include directions for any medications you should take after leaving the hospital. Please make sure you see your Primary Care Provider as part of your follow up plan. Activity: Resume your previous activity Non-emergency contact: Primary Care Provider and Cop Breaker Call non-emergency contact if: you have any medication questions, your symptoms worsen, your pain is concerning for you and you have a fever Follow-up/Referrals: Ana Hills CRNP [Primary Care Provider] - 07/28/22 10:30 am Trent Parada MD [Physician] - 07/29/22 2:30 pm (will be seen by Michael Smart PA-C) Diet: Heart Healthy Addtl Attending Provider Instructions: You have been hospitalized for atrial fibrillation with fast rate. Cardiology was consulted and you were treated with various medications and converted back to a normal sinus rhtyhm since starting medication called amiodarone. Per discussion with Dr Parada, we are going to discharge you on amiodarone 200mg by mouth twice daily and have STOPPED your diltiazem and propranolol and instead are using metoprolol 25mg by mouth twice daily to help maintain this normal rhythm. Your antidepressant had been stopped while on amiodarone given interaction and you should follow up with primary care about alternative options if having issues off this medication. You should monitor your pulses at home and if you develop worsening/repeat symptoms, shortness of breath or chest pain please return to the emergency department. Please follow up with primary care and cardiology in the next 7-10 days to monitor your progress. It has been a pleasure being a part of the medical team providing for you while you have been in the hospital. Take care! Pending Studies at Discharge: No Stand-Alone Forms: My [facility], Smoking Cessation Medications and DC Order Prescriptions: New amiodarone 200 mg Tablet 200 mg PO BIDM Qty: 60 0RF metoprolol tartrate 25 mg Tablet 25 mg PO BID Qty: 60 0RF Continued simvastatin 20 mg tablet 20 mg PO DAILY Qty: 90 3RF PreserVision AREDS [id number] capsule 1 cap PO BID doxazosin 1 mg tablet 1 mg PO DAILY Qty: 30 11RF cholecalciferol (vitamin D3) 2,000 unit capsule 2,000 units PO DAILY losartan 50 mg tablet 50 mg PO DAILY Eliquis 2.5 mg Tablet 2.5 mg PO BID Qty: 60 0RF aspirin 81 mg Tablet,Delayed Release (Dr/Ec) 81 mg PO DAILY Discontinued diltiazem HCl [Cardizem CD] 120 mg capsule,extended release 24hr 120 mg PO QAM Qty: 30 0RF escitalopram oxalate [Lexapro] 5 mg tablet 5 mg PO DAILY Qty: 90 3RF Discharge Orders: Discharge Order (Routine); Ordered 07/23/22 Ordered By: Nneka Martell/Other Patient Handouts: AFib Dc, AFib Preventing Stroke, AFib Admission Data Admit Date/Time: 07/20/22 23:00 Attending Provider: Frank Troncoso Admit Provider: Elena Rene Primary Care Provider: Ana Hills Other Providers: Kervin Rodriguez ; Xavier Mercado Other Interventions: Discharge Summary Assessment (RN) Last Done: 07/23/22 11:42 Supervising Physician Co-Signing Physician Notes The patient was seen by me. The chart was reviewed. Case discussed with EDILMA Gonzalez. Agree with assessment and plan. She is medically stable for discharge Coding Level of Care Code 69026 INP/OBS DISCH >30 MIN Diagnoses Atrial fibrillation with RVR I48.91 Elevated troponin R77.8 Hypercalcemia E83.52 Depression F32.9 Hypertension I10 Dyslipidemia E78.5
[2022-07-23] MEDS ORDERED: AMIODARONE 200 MG TAB PO SCH (17:00)
[2022-07-23] MEDS ORDERED: METOPROLOL TARTRATE 25 MG TAB PO SCH (21:00)
== END 2022-07-23 13:41 | disposition home or self-care (01) | DRG 309 ==
LOC: ED 18:08 → SUATTDRO 23:00 → 2S 23:00

== ENCOUNTER 2022-10-12 16:29 | Inpatient (IN) ==
[2022-10-12] MEDS ORDERED: dilTIAZem HCl 5 MG/ML 5 ML VIAL IV STA (16:55)
--- NOTE | 2022-10-12 17:01 | Emergency Department Note ---
Impression & Plan Atrial fibrillation with RVR, العراقي (dyspnea on exertion) ED Provider Note Provider: Gurpreet Holloway MD DATE OF SERVICE: 10/12/2022 CHIEF COMPLAINT: Palpitations, dyspnea on exertion HISTORY OF PRESENT ILLNESS: Patient is a 87-year-old female history of paroxysmal atrial fibrillation in the past currently on Eliquis presenting here today reporting that this morning while she Q fever at 845 this morning had onset of elevated heart rate and palpitations. States a history of A-fib and has been compliant with her home medications. Taking her Eliquis as well as amiodarone and propranolol regularly. Was visiting family down by family and given prolonged symptoms drove home this morning with family. Took an extra dose of as needed diltiazem 120 mg around lunchtime which did not seem to i mprove her symptoms and thus came here given prolonged symptoms this evening for evaluation. Denies chest pain. States a chronic cough but no significant work in the field this. States however she does have more fatigue and bit of shortness of breath when she tries to get around and ambulate currently. Denies recent illness. Denies use of alcohol. Follows with Dr. Parada of cardiology. Relays normally her heart rate is more bradycardic. PAST MEDICAL HISTORY: As noted above MEDICATIONS: Reviewed home medications at bedside with her SOCIAL HISTORY: Non-smoker PHYSICAL EXAM: GENERAL: alert and oriented in no acute distress on stretcher Head: normocephalic and atraumatic EYES: No injection, discharge or icterus. NECK: Trachea midline. ENT: Mucous membranes pink and moist. LUNGS: Airway patent. No retractions or tachypnea HEART: Regular tachycardic rate and rhythm. No chest wall tenderness ABDOMEN: Soft and non-tender, without guarding or rebound. SKIN: Acyanotic, warm, dry, without rashes EXTREMITIES: Without swelling, tenderness or deformity NEUROLOGICAL: No focal deficits. No aphasia. No facial droop or slurred speech. Ambulatory. EK bpm atrial fibrillation with rapid ventricular response without acute ST segment elevation or depression with a QTc of 504. EK bpm atrial fibrillation without clear acute ST segment elevation rhythm with a incomplete right bundle branch block and QTc of 462. CONTINUOUS CARDIAC MONITORING: was ordered and showed a heart rate of 80s-120s bpm in atrial fibrillation Patient's laboratory studies and imaging reviewed. Differential includes Premature contractions, electrolyte abnormality, cardiac dysrhythmia, thyroid dysfunction, pulmonary embolism, infection, gastrointestinal, as well as other pathologies. IMPRESSION/MEDICAL DECISION MAKING: Denies chest pain. No evidence of STEMI on EKG. Anticoagulated and low suspicion for acute VTE given this. Denies recent illness. Not hypoxic here. Tachycardic with some variability and irregularity in question given her history underlying A-fib/a flutter. Has been on antiarrhythmics again as well as Eliquis. Tried some oral diltiazem several hours ago without improvement and given an IV dose here upon review of records it appears she responded at this favorably when she was hospitalized here in July. Question some fatigue and العراقي particular with exertion given her tachyarrhythmia. Second EKG does confirm A-fib and had some improvement of rate control with IV Cardizem here briefly. Blood work without significant anemia or leukocytosis. Slight leukopenia. No significant electrolyte abnormality signs of renal dysfunction today. Troponin 19 but improved compared to previous. TSH within normal limits. COVID-negative. Patient's heart rate has improved some still gets RVR at times just sitting let alone getting up and walking to the bathroom. Denies feeling significantly lightheaded or having any chest pain. Given however a control over having with her age and comorbidities, discussed further care here at the hospital pill diltiazem drip was started. Hospitalist contacted. DIAGNOSIS: A-fib with RVR, dyspnea on exertion, palpitations DISPOSITION: Hospitalist will evaluate Patient was agreeable with this plan. Critical Care I have personally spent 32 minutes of critical care time in the direct manageme nt of this patient. This includes bedside care, interpretation of diagnostic studies, and testing, discussion with consultants, patient, and family members, and other required patient management activities. These 32 minutes is in excess of all separately billable procedures. Past Med/Surg History Medical History (Updated 10/12/22 @ 23:13 by Gurpreet Holloway M.D.) Acute sinusitis Elevated troponin External carotid artery stenosis Fatigue Granulocytopenia Hypercalcemia Left thigh pain Low back ache Myofascial muscle pain Seborrheic keratosis Telangiectasia Surgical History History of cataract surgery Family History Brother Myocardial infarction Denies family history of Ovarian cancer Prostate cancer Breast cancer Colorectal cancer Social History Smoking Status: Never smoker Second Hand Exposure: No; Do You Dip or Chew Tobacco: No; Hx Alcohol Use: No Hx Substance Use: No Preferred Language: Czech Communication Ability: Effective 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 Beliefs That Will Affect Care: None marital status: / Current Living Situation: Family Current Living Situation Comment: lives w/ son colten current occupational status: retired Feels Safe at Home: Yes Safety Concerns: Feels Safe At This Time Childhood Exposure to Second-Hand Smoke: Yes Diet: regular caffeine: Yes Dental Care, Regularly: Yes Physical Activity Frequency: Does not Exercise Seatbelt Use: always Sunscreen Use: Yes Assistive Devices: Glasses Allergies Allergies Allergy/AdvReac Type Severity Reaction Status Date / Time No Known Drug Allergies AdvReac Unknown Unknown Verified 08/28/22 14:12 Home Meds Home Medications Medication Instructions Recorded Confirmed cholecalciferol (vitamin D3) 50 2,000 units PO DAILY 03/19/19 10/12/22 mcg (2,000 unit) capsule vitamins A,C,[id number] 4,296 1 cap PO BID 05/02/21 10/12/22 mcg-226 mg-90 mg capsule (PreserVision AREDS) losartan 50 mg tablet 50 mg PO DAILY 04/21/22 10/12/22 aspirin 81 mg tablet,delayed 81 mg PO DAILY 07/20/22 10/12/22 release Previous Rx's Medication Instructions Recorded doxazosin 1 mg tablet 1 mg PO DAILY #30 tabs 06/26/22 simvastatin 20 mg tablet 20 mg PO DAILY #90 tabs 07/28/22 amiodarone 200 mg tablet 200 mg PO DAILY #90 tabs 07/29/22 apixaban 2.5 mg tablet (Eliquis) 2.5 mg PO BID #180 tabs 07/29/22 propranolol 60 mg capsule,24 60 mg PO DAILY #90 caps 07/29/22 hr,extended release Results & Data (ED) Vital Signs Vital Signs - 24 hr 10/12/22 16:33 10/12/22 17:00 10/12/22 17:10 Temperature 37 C Temperature Source Temporal Artery Scan Pulse Rate 118 H 114 H Pulse Rate [Apical] 78 Pulse Rate from SpO2 Sensor Respiratory Rate 20 18 Respiratory Effort / Characteristics Non-Labored Spontaneous Respiratory Depth Normal Blood Pressure Blood Pressure [Left Arm] 129/99 Blood Pressure Mean Blood Pressure Mean [Left Arm] 109 Pulse Oximetry 98 95 Oxygen Delivery Method Room Air Room Air Sepsis Recent Fever Within 48 Hours No Sepsis New/Unexplained Change in Mental Status No Sepsis Action Taken by Nursing No Action Required 10/12/22 16:43 10/12/22 16:44 10/12/22 16:50 Temperature Temperature Source Pulse Rate 110 H 111 H Pulse Rate [Apical] Pulse Rate from SpO2 Sensor 111 H 117 H Respiratory Rate 16 19 Respiratory Effort / Characteristics Respiratory Depth Blood Pressure 157/95 H Blood Pressure [Left Arm] Blood Pressure Mean 114 Blood Pressure Mean [Left Arm] Pulse Oximetry 98 97 Oxygen Delivery Method Sepsis Recent Fever Within 48 Hours Sepsis New/Unexplained Change in Mental Status Sepsis Action Taken by Nursing 10/12/22 17:00 10/12/22 17:00 10/12/22 17:10 Temperature Temperature Source Pulse Rate 115 H 78 Pulse Rate [Apical] Pulse Rate from SpO2 Sensor 93 H Respiratory Rate 17 21 Respiratory Effort / Characteristics Respiratory Depth Blood Pressure 129/99 Blood Pressure [Left Arm] Blood Pressure Mean 114 Blood Pressure Mean [Left Arm] Pulse Oximetry 95 Oxygen Delivery Method Sepsis Recent Fever Within 48 Hours Sepsis New/Unexplained Change in Mental Status Sepsis Action Taken by Nursing 10/12/22 17:20 10/12/22 17:30 10/12/22 17:30 Temperature Temperature Source Pulse Rate 85 85 Pulse Rate [Apical] Pulse Rate from SpO2 Sensor 87 89 Respiratory Rate 15 15 Respiratory Effort / Characteristics Respiratory Depth Blood Pressure 121/79 Blood Pressure [Left Arm] Blood Pressure Mean 84 Blood Pressure Mean [Left Arm] Pulse Oximetry 96 96 Oxygen Delivery Method Sepsis Recent Fever Within 48 Hours Sepsis New/Unexplained Change in Mental Status Sepsis Action Taken by Nursing 10/12/22 19:00 10/12/22 19:10 10/12/22 19:20 Temperature Temperature Source Pulse Rate 86 102 H 109 H Pulse Rate [Apical] Pulse Rate from SpO2 Sensor Respiratory Rate 17 15 16 Respiratory Effort / Characteristics Respiratory Depth Blood Pressure 149/96 H 129/91 Blood Pressure [Left Arm] Blood Pressure Mean 113 103 Blood Pressure Mean [Left Arm] Pulse Oximetry 96 98 98 Oxygen Delivery Method Room Air Room Air Room Air Sepsis Recent Fever Within 48 Hours Sepsis New/Unexplained Change in Mental Status Sepsis Action Taken by Nursing 10/12/22 19:30 10/12/22 19:36 10/12/22 19:45 Temperature Temperature Source Pulse Rate 98 H 119 H Pulse Rate [Apical] Pulse Rate from SpO2 Sensor 119 H Respiratory Rate 16 15 Respiratory Effort / Characteristics Respiratory Depth Blood Pressure 130/94 127/86 Blood Pressure [Left Arm] Blood Pressure Mean 106 99 Blood Pressure Mean [Left Arm] Pulse Oximetry 97 97 Oxygen Delivery Method Room Air Room Air Sepsis Recent Fever Within 48 Hours Sepsis New/Unexplained Change in Mental Status Sepsis Action Taken by Nursing 10/12/22 20:00 10/12/22 20:15 10/12/22 20:15 Temperature Temperature Source Pulse Rate 107 H 96 H Pulse Rate [Apical] Pulse Rate from SpO2 Sensor 111 H 96 H Respiratory Rate 16 17 Respiratory Effort / Characteristics Respiratory Depth Blood Pressure 121/94 124/80 Blood Pressure [Left Arm] Blood Pressure Mean 103 99 Blood Pressure Mean [Left Arm] Pulse Oximetry 98 97 Oxygen Delivery Method Room Air Room Air Sepsis Recent Fever Within 48 Hours Sepsis New/Unexplained Change in Mental Status Sepsis Action Taken by Nursing 10/12/22 20:30 10/12/22 20:30 10/12/22 20:46 Temperature Temperature Source Pulse Rate 106 H 111 H Pulse Rate [Apical] Pulse Rate from SpO2 Sensor 94 H 114 H Respiratory Rate 11 L 17 Respiratory Effort / Characteristics Respiratory Depth Blood Pressure 118/76 118/76 124/85 Blood Pressure [Left Arm] Blood Pressure Mean 92 90 98 Blood Pressure Mean [Left Arm] Pulse Oximetry 98 99 Oxygen Delivery Method Room Air Sepsis Recent Fever Within 48 Hours Sepsis New/Unexplained Change in Mental Status Sepsis Action Taken by Nursing Laboratory Data 10/12/22 16:55 10/12/22 16:55 Lab Results 10/12/22 10/12/22 10/12/22 Range/Units 16:55 16:55 16:55 WBC 4.15 L (4.8-10.8) K/ul RBC 4.32 (4.20-5.40) M/uL Hgb 13.4 (12.0-16.0) g/dl Hct 40.3 (37.0-47.0) % MCV 93.3 (80.0-100.0) fL MCH 31.0 (25.0-34.0) pg MCHC 33.3 (32.0-36.0) g/dL RDW Std Deviation 44.5 (36.4-46.3) fL RDW Coeff of Elizabeth 13.0 (11.5-14.5) % Plt Count 177 (130-400) K/uL MPV 10.5 (9.4-12.4) fL Immature Gran % (Auto) 0.2 % Neut % (Auto) 62.1 % Lymph % (Auto) 21.2 % [place] % (Auto) 13.3 % Eos % (Auto) 2.2 % Baso % (Auto) 1.0 % Neut # (Auto) 2.58 (1.40-6.50) K/uL Lymph # (Auto) 0.88 L (1.2-3.4) K/uL [place] # (Auto) 0.55 (0.11-0.59) K/uL Eos # (Auto) 0.09 (0-0.50) K/uL Baso # (Auto) 0.04 (0-0.2) K/uL Immature Gran # (Auto) 0.01 (0.01-0.20) K/uL PT 11.5 (9.0-12.0) Seconds INR 1.1 (0.9-1.1) APTT 31.2 H (21.0-31.0) Seconds PTT Ratio 1.1 Sodium 139 (136-145) mmol/L Potassium 4.1 (3.5-5.1) mmol/L Chloride 107 (98-107) mmol/L Carbon Dioxide 26 (21-32) mmol/L Anion Gap 6 (3-11) BUN 20 (6-23) mg/dl Creatinine 0.88 (0.6-1.2) mg/dl Est Cr Clr Drug Dosing 37.0 ml/min Est GFR ( Amer) 69.4 ml/min Est GFR (Non-Af Amer) 59.9 ml/min BUN/Creatinine Ratio 22.7 H (10-20) Glucose 103 H (70-99(Fasting)) mg/dl Calcium 10.2 (8.6-10.3) mg/dl Magnesium 1.9 (1.7-2.4) mg/dl Total Bilirubin 0.5 (0.2-1.0) mg/dl AST 23 (13-39) U/L ALT 25 (7-52) U/L Alkaline Phosphatase 84 (34-104) U/L Troponin I High Sens 19.4 H (0-14) pg/ml Total Protein 7.0 (6.0-8.3) gm/dl Albumin 4.0 (3.4-5.0) gm/dl Globulin 3.0 (2.5-4.0) gm/dl Albumin/Globulin Ratio 1.3 (0.9-2) TSH (0.300-4.500) uIu/ml SARS-CoV-2, RNA, NAAT (NEGATIVE) 10/12/22 10/12/22 Range/Units 16:55 17:13 WBC (4.8-10.8) K/ul RBC (4.20-5.40) M/uL Hgb (12.0-16.0) g/dl Hct (37.0-47.0) % MCV (80.0-100.0) fL MCH (25.0-34.0) pg MCHC (32.0-36.0) g/dL RDW Std Deviation (36.4-46.3) fL RDW Coeff of Elizabeth (11.5-14.5) % Plt Count (130-400) K/uL MPV (9.4-12.4) fL Immature Gran % (Auto) % Neut % (Auto) % Lymph % (Auto) % [place] % (Auto) % Eos % (Auto) % Baso % (Auto) % Neut # (Auto) (1.40-6.50) K/uL Lymph # (Auto) (1.2-3.4) K/uL [place] # (Auto) (0.11-0.59) K/uL Eos # (Auto) (0-0.50) K/uL Baso # (Auto) (0-0.2) K/uL Immature Gran # (Auto) (0.01-0.20) K/uL PT (9.0-12.0) Seconds INR (0.9-1.1) APTT (21.0-31.0) Seconds PTT Ratio Sodium (136-145) mmol/L Potassium (3.5-5.1) mmol/L Chloride (98-107) mmol/L Carbon Dioxide (21-32) mmol/L Anion Gap (3-11) BUN (6-23) mg/dl Creatinine (0.6-1.2) mg/dl Est Cr Clr Drug Dosing ml/min Est GFR ( Amer) ml/min Est GFR (Non-Af Amer) ml/min BUN/Creatinine Ratio (10-20) Glucose (70-99(Fasting)) mg/dl Calcium (8.6-10.3) mg/dl Magnesium (1.7-2.4) mg/dl Total Bilirubin (0.2-1.0) mg/dl AST (13-39) U/L ALT (7-52) U/L Alkaline Phosphatase (34-104) U/L Troponin I High Sens (0-14) pg/ml Total Protein (6.0-8.3) gm/dl Albumin (3.4-5.0) gm/dl Globulin (2.5-4.0) gm/dl Albumin/Globulin Ratio (0.9-2) TSH 1.273 (0.300-4.500) uIu/ml SARS-CoV-2, RNA, NAAT NEGATIVE (NEGATIVE) Administered Medications Apixaban (Apixaban 2.5 Mg Tab) 2.5 mg PO BID HE Stop: 11/11/22 22:20 Last Admin: 10/12/22 22:33 Dose: 2.5 mg Documented By: YAHAIRA Amiodarone HCl/Dextrose (Nexterone / D5w) 360 mg in 200 mls @ 33.333 mls/hr IV ONE ONE Stop: 10/13/22 03:08 Last Infusion: 10/12/22 21:49 Dose: 0 mg/min, 0 mls/hr Documented By: AVNDA Co-signed By: Admin: 10/12/22 21:44 Dose: 1 mg/min, 33.3 mls/hr Documented By: VANDA Co-signed By: Sodium Chloride (Nss 1000ml) 1,000 mls @ 999 mls/hr IV .Q1H1M ONE Stop: 10/12/22 23:26 Last Admin: 10/12/22 22:33 Dose: 999 mls/hr Documented By: YAHAIRA Discontinued Medications Diltiazem HCl (Diltiazem Hcl 5 Mg/Ml 5 Ml Vial) 15 mg IV NOW STA Stop: 10/12/22 16:56 Last Admin: 10/12/22 17:04 Dose: 15 mg Documented By: AZALEA Co-signed By: ALINA Diltiazem HCl 125 mg/ Dextrose 125 mls @ 0 mls/hr IV .Q0M HE; Protocol Stop: 11/11/22 18:59 Last Titration: 10/12/22 21:31 Dose: 0 mg/hr, 0 mls/hr Documented By: VANDA Co-signed By: ADELITA Titration: 10/12/22 21:04 Dose: 10 mg/hr, 10 mls/hr Documented By: VANDA Co-signed By: ADELITA Admin: 10/12/22 19:40 Dose: 5 mg/hr, 5 mls/hr Documented By: VANDA Co-signed By: Magnesium Sulfate/Dextrose (Magnesium Sulfate / D5w) 1 gm in 100 mls @ 50 mls/hr IV ONE ONE Stop: 10/12/22 22:52 Last Admin: 10/12/22 21:07 Dose: 50 mls/hr Documented By: VANDA Amiodarone HCl/Dextrose (Nexterone / D5w) 150 mg in 100 mls @ 600 mls/hr IV NOW STA Stop: 10/12/22 21:08 Last Infusion: 10/12/22 21:44 Dose: 0 mls/hr Documented By: VANDA Co-signed By: Admin: 10/12/22 21:29 Dose: 600 mls/hr Documented By: VANDA Co-signed By: ADELITA Imaging Data Radiologist's Impression: Chest X-Ray 10/12/22 16:55 XR chest 1V portable HISTORY: 87 years-old Female Dysrhythmia COMPARISON: 07/20/2022 TECHNIQUE: AP view of the chest FINDINGS: FINDINGS: Cardiac silhouette is enlarged. No pneumothorax, large pleural effusion, airspace consolidation or overt pulmonary edema. Possible trace pleural effusions. Degenerative changes of the shoulders and spine. Chronic appearing fracture deformity of the proximal right humerus. IMPRESSION: Cardiomegaly without acute process. ACT 112: Negative or not required by law. The above report was generated using voice recognition software. It may contain grammatical, syntax or spelling errors. Electronically signed by: Geovany Langston M.D. 10/12/2022 5:27 PM Discharge Plan Visit Data Chief Complaint: Arrhythmia/Palpitations Stated Complaint: TACHYCARDIA ED Provider: Gurpreet Holloway Discharge Problem: Atrial fibrillation with RVR, العراقي (dyspnea on exertion) Patient Disposition: Admitted As Inpatient Discharge Instructions Interventions: ED Discharge Assessment Last Done: 10/12/22 22:03
[2022-10-12 17:19] LABS: Basophils # (auto) 0.04 K/uL (0-0.2); Eosinophils # (auto) 0.09 K/uL (0-0.50); Eosinophils % (auto) 2.2 %; Hematocrit (blood only) 40.3 % (37.0-47.0); Hemoglobin 13.4 g/dl (12.0-16.0); Immature Granulocytes # (auto) 0.01 K/uL (0.01-0.20); Immature Granulocytes % (auto) 0.2 %; Lymphocytes # (auto) 0.88 K/uL (1.2-3.4); Lymphocytes % (auto) 21.2 %; Mean Corpuscular Hgb Conc 33.3 g/dL (32.0-36.0); Mean Corpuscular Volume 93.3 fL (80.0-100.0); Mean Platelet Volume 10.5 fL (9.4-12.4); Monocytes # (auto) 0.55 K/uL (0.11-0.59); Monocytes % (auto) 13.3 %; Neutrophils # (auto) 2.58 K/uL (1.40-6.50); Neutrophils % (auto) 62.1 %; Platelet Count 177 K/uL (130-400); RDW Standard Deviation 44.5 fL (36.4-46.3); Red Blood Count 4.32 M/uL (4.20-5.40); White Blood Count 4.15 K/ul (4.8-10.8)
--- NOTE | 2022-10-12 17:28 | XRay Report ---
XR chest 1V portable HISTORY: 87 years-old Female Dysrhythmia COMPARISON: 07/20/2022 TECHNIQUE: AP view of the chest FINDINGS: FINDINGS: Cardiac silhouette is enlarged. No pneumothorax, large pleural effusion, airspace consolida tion or overt pulmonary edema. Possible trace pleural effusions. Degenerative changes of the shoulder s and spine. Chronic appearing fracture deformity of the proximal right humerus. IMPRESSION: Cardiomegaly without acute process. ACT 112: Negative or not required by law. The above report was generated using voice recognition software. It may contain grammatical, syntax o r spelling errors. Electronically signed by: Geovany Langston M.D. 10/12/2022 5:27 PM
[2022-10-12 17:35] LABS: Albumin Globulin Ratio 1.3 (0.9-2); BUN Creatinine Ratio 22.7 (10-20); Bilirubin,Total 0.5 mg/dl (0.2-1.0); Calcium 10.2 mg/dl (8.6-10.3); Est GFR (African American) 69.4 ml/min; Est GFR (Non-African American) 59.9 ml/min; Magnesium 1.9 mg/dl (1.7-2.4); Potassium 4.1 mmol/L (3.5-5.1)
[2022-10-12 17:40] LABS: Troponin I High Sensitivity 19.4 pg/ml (0-14)
[2022-10-12 17:51] LABS: INR 1.1 (0.9-1.1); Partial Thromboplastin Ratio 1.1; Partial Thromboplastin Time 31.2 Seconds (21.0-31.0); Prothrombin Time 11.5 Seconds (9.0-12.0)
[2022-10-12] MEDS ORDERED: STAT IV Infusion **Titration per Protocol STA ×2 (18:57→20:59)
[2022-10-12] MEDS ORDERED: dilTIAZem HCL 125 MG in DEXTROSE 5% 100 ML IV SCH (19:00)
--- NOTE | 2022-10-12 20:35 | History & Physical Report ---
Date of Service October 12, 2022 Assessment & Plan (1) Paroxysmal atrial fibrillation: Plan: -Admit to the PCI on tele -Currently stable but still in afib with HR in the 90's-low 100's on 5 mg/hr of the diltiazem drip -Did take her amiodarone and propranolol this am, along with one dose of prn diltiazem without resolution of symptoms -Will stop the diltiazem drip and switch her to an amiodarone drip w/bolus to see if she will convert back to NSR overnight -Will give 1mg IV mag-sulfate STAT -Will continue her BID Eliquis -NPO except meds at midnight in case she would need to be cardioverted tomorrow -Ordered prn IV lopressor q4h prn sustained HR > 120 (max dose of 3), will hold her PO propranolol for now to avoid bradycardia as she has had issues with bradycardia in the past -Cardiology consult placed -BL SCD's and Eliquis for DVT PPX -AM CBC, BMP, Mag, PT/INR (2) Elevated troponin: Plan: -Initial high sen trop elevated at 19 -No chest discomfort or atypical ACS symptoms, no acute ST segment or T-wave changes -Likely due to demand from afib RVR -Will repeat a STAT high sen trop on admission, continue to monitor on tele -Continue daily aspirin, daily statin, and BID Eliquis (3) Hypertension: Plan: -Stable -Continue to monitor BP while on amiodarone drip -Will hold losartan for now to avoid hypotension (4) Dyslipidemia: Plan: -Continue atorvastatin Plan The patient was discussed with Dr. Johnson at the time of the admission History of Present Illness Chief Complaint: Heart Palpitations Primary Care Provider: SARAH Sanches Avelina is a 87F with history of paroxysmal A Fib on Eliquis, chronic sinusitis, depression, paroxysmal SVT, essential tremor, HTN, and dyslipidemia who presented to the [facility] ED on 10/12/22 with a chief complaint of heart palpitations/racing heart rate this am. In the ED she was found to be in afib RVR with HR in the 110's, vitals were otherwise stable. Labs were significant for an initial high sen trop of 19. Chest xray was read as "Cardiomegaly without acute process.". The patient was initially given 15 mg IV diltiazem without conversion to NSR and required transition to a diltiazem drip prior to admission. At the time of the exam the patient was walking back from the bathroom in no acute distress. She states that she had been doing well on the once daily amiodarone and daily propranolol until this am. She noticed she went back into afib this am around 0945. She confirmed that she has been taking her Eliquis BID and did take her amiodarone and propranolol this am as well. She has prn PO diltiazem for HR > 120, she took one dose without resolution of her symptoms. Besides noticing her heart palpations she is without lightheadedness, dizziness, chest pain and SOB. I explained that we will continue to use IV medications overnight with hopes that converts back to NSR, if not she may need to be cardioverted, she is in agreement with the plan. She is a Full code and would want her son to make medical decisions for her if she could not make them herself. Please refer to Dr. Johnson's attestation for any changes to the treatment plan Allergies Allergy/AdvReac Type Severity Reaction Status Date / Time No Known Drug Allergies AdvReac Unknown Unknown Verified 08/28/22 14:12 Home Medications Medication Instructions Recorded Confirmed Type cholecalciferol (vitamin D3) 50 2,000 units PO DAILY 03/19/19 10/12/22 History mcg (2,000 unit) capsule vitamins A,C,P-gszj-yauwaa 4,296 1 cap PO BID 05/02/21 10/12/22 History mcg-226 mg-90 mg capsule (PreserVision AREDS) losartan 50 mg tablet 50 mg PO DAILY 04/21/22 10/12/22 History doxazosin 1 mg tablet 1 mg PO DAILY #30 tabs 06/26/22 10/12/22 Rx aspirin 81 mg tablet,delayed 81 mg PO DAILY 07/20/22 10/12/22 History release simvastatin 20 mg tablet 20 mg PO DAILY #90 tabs 07/28/22 10/12/22 Rx amiodarone 200 mg tablet 200 mg PO DAILY #90 tabs 07/29/22 10/12/22 Rx apixaban 2.5 mg tablet (Eliquis) 2.5 mg PO BID #180 tabs 07/29/22 10/12/22 Rx propranolol 60 mg capsule,24 60 mg PO DAILY #90 caps 07/29/22 10/12/22 Rx hr,extended release Past Med/Surg History Medical History (Updated 10/12/22 @ 20:34 by Eric Torrez PA-C) Acute sinusitis Elevated troponin External carotid artery stenosis Fatigue Granulocytopenia Hypercalcemia Left thigh pain Low back ache Myofascial muscle pain Seborrheic keratosis Telangiectasia Surgical History History of cataract surgery Family History Brother Myocardial infarction Denies family history of Ovarian cancer Prostate cancer Breast cancer Colorectal cancer Social History Smoking Status: Never smoker Second Hand Exposure: No; Do You Dip or Chew Tobacco: No; Hx Alcohol Use: No Hx Substance Use: No Preferred Language: Cambodian Communication Ability: Effective Harbour Master Required: No Beliefs That Will Affect Care: None marital status: / Current Living Situation: Family Current Living Situation Comment: Lives with son Vishal current occupational status: retired Feels Safe at Home: Yes Childhood Exposure to Second-Hand Smoke: Yes Diet: regular caffeine: Yes Dental Care, Regularly: Yes Physical Activity Frequency: Does not Exercise Seatbelt Use: always Sunscreen Use: Yes Assistive Devices: None Physical Exam Physical Exam: Physical Exam: General: In no acute distress, stated age, well-nourished, good hygiene HEENT: Normocephalic, atraumatic, no scleral icterus, pupils around round, symmetrical, and reactive to light, moist mucus membranes, trachea midline, no thyromegaly Chest/Pulm: No respiratory distress, symmetrical chest expansion, clear breath sounds throughout Cardiac: irregular rate and rhythm, no murmurs noted Abdomen: Negative for ascites and bruising, normoactive bowel sounds, soft, non-tender to palpation throughout Musculoskeletal: Symmetrical and without signs of acute trauma, upper and lower extremities with full ROM, no atrophy, spasticity, or flaccidity Extremities: Radial, dorsalis pedis, and posterior tibial pulses are intact and symmetrical, no edema noted in the BL LE's Skin: Warm, dry, no rashes , lesions, or scars noted Neuro: Alert and oriented to person, place, month, year, and president, no focal defects, CN II-XII tested and intact, mild baseline tremor noted Psych: No acute distress, calm and cooperative during the exam Results & Data Results & Data Vital Signs (Past 12 Hours) Vital Signs Temp Pulse Pulse Resp BP BP Pulse Ox 10/12/22 20:15 96 H 17 97 10/12/22 20:00 107 H 16 121/94 98 10/12/22 19:45 119 H 15 127/86 97 10/12/22 19:36 130/94 10/12/22 19:30 98 H 16 97 10/12/22 19:20 109 H 16 98 10/12/22 19:10 102 H 15 129/91 98 10/12/22 19:00 86 17 149/96 H 96 10/12/22 17:30 85 15 96 10/12/22 17:30 121/79 10/12/22 17:20 85 15 96 10/12/22 17:10 78 21 95 10/12/22 17:00 115 H 17 10/12/22 17:00 129/99 10/12/22 16:50 111 H 19 97 10/12/22 16:44 110 H 16 98 10/12/22 16:43 157/95 H 10/12/22 17:10 78 18 129/99 95 10/12/22 17:00 114 H 10/12/22 16:33 37 C 118 H 20 98 O2 Del Method 10/12/22 20:15 Room Air 10/12/22 20:00 Room Air 10/12/22 19:45 Room Air 10/12/22 19:36 10/12/22 19:30 Room Air 10/12/22 19:20 Room Air 10/12/22 19:10 Room Air 10/12/22 19:00 Room Air 10/12/22 17:30 10/12/22 17:30 10/12/22 17:20 10/12/22 17:10 10/12/22 17:00 10/12/22 17:00 10/12/22 16:50 10/12/22 16:44 10/12/22 16:43 10/12/22 17:10 Room Air 10/12/22 17:00 10/12/22 16:33 Room Air Laboratory Results Abnormal lab results 10/12/22 10/12/22 10/12/22 Range/Units 16:55 16:55 16:55 WBC 4.15 L (4.8-10.8) K/ul Lymph # (Auto) 0.88 L (1.2-3.4) K/uL APTT 31.2 H (21.0-31.0) Seconds BUN/Creatinine Ratio 22.7 H (10-20) Glucose 103 H (70-99(Fasting)) mg/dl Troponin I High Sens 19.4 H (0-14) pg/ml Diagnostic Findings Chest X-Ray 10/12/22 16:55 XR chest 1V portable HISTORY: 87 years-old Female Dysrhythmia COMPARISON: 07/20/2022 TECHNIQUE: AP view of the chest FINDINGS: FINDINGS: Cardiac silhouette is enlarged. No pneumothorax, large pleural effusion, airspace consolidation or overt pulmonary edema. Possible trace pleural effusions. Degenerative changes of the shoulders and spine. Chronic appearing fracture deformity of the proximal right humerus. IMPRESSION: Cardiomegaly without acute process. ACT 112: Negative or not required by law. The above report was generated using voice recognition software. It may contain grammatical, syntax or spelling errors. Electronically signed by: Geovany Langston M.D. 10/12/2022 5:27 PM ECG Additional Comments: Atrial fibrillation with a competing junctional pacemaker Left axis deviation Incomplete right bundle branch block Minimal voltage criteria for LVH, may be normal variant ( Dawson product ) Nonspecific ST and T wave abnormality Abnorma l ECG When compared with ECG of 12-OCT-2022 16:40, (unconfirmed) Atrial fibrillation has replaced Sinus rhythm Code Status & VTE Plan Code Status Full code VTE Prophylaxis Plan VTE Prophylaxis will be ordered: Yes PG Care Time/CCT Total # of Minutes Spent Total Time Spent with Patient: Total time spent is greater than 50% in coordination of care (as documented) at patient's floor/unit and/or counseling patient: Coding [place] [address] INT INP/OBS CARE 3/75MIN Patient Type Established History Comprehensive Exam Comprehensive Medical Decision Making High Complexity Diagnoses Paroxysmal atrial fibrillation I48.0 Elevated troponin R77.8 Hypertension I10 Dyslipidemia E78.5
[2022-10-12] MEDS ORDERED: MAGNESIUM SULFATE / D5W 1 GM/100 ML BAG IV ONE (20:53)
[2022-10-12] MEDS ORDERED: AMIODARONE / D5W 150 MG/100 ML BAG IV STA (20:59)
[2022-10-12] MEDS ORDERED: 0.2 MICRON FILTER SET 1 EACH IV STA (20:59)
[2022-10-12] MEDS ORDERED: AMIODARONE IV BOLUS & DRIP IV STA (20:59)
[2022-10-12] MEDS ORDERED: AMIODARONE / D5W 360 MG/200 ML BAG IV ONE (21:09)
[2022-10-12] MEDS ORDERED: METOPROLOL TARTRATE 1 MG/ML VIAL IV PRN (22:21)
[2022-10-12] MEDS ORDERED: SODIUM CHLORIDE 0.9% 1000ML 1,000 ML IV ONE (22:26)
[2022-10-12] MEDS: APIXABAN 2.5 MG TAB PO SCH (22:33)
[2022-10-13] MEDS ORDERED: AMIODARONE / D5W 360 MG/200 ML BAG IV SCH (03:00)
[2022-10-13 07:37] LABS: Hematocrit (blood only) 36.9 % (37.0-47.0); Hemoglobin 11.8 g/dl (12.0-16.0); Mean Corpuscular Hemoglobin 30.5 pg (25.0-34.0); Mean Corpuscular Volume 95.3 fL (80.0-100.0); Mean Platelet Volume 10.5 fL (9.4-12.4); Platelet Count 149 K/uL (130-400); RDW Coefficient of Variation 13.2 % (11.5-14.5); RDW Standard Deviation 46.3 fL (36.4-46.3); Red Blood Count 3.87 M/uL (4.20-5.40); White Blood Count 4.16 K/ul (4.8-10.8)
[2022-10-13 07:50] LABS: Albumin Globulin Ratio 1.4 (0.9-2); Albumin Level 3.4 gm/dl (3.4-5.0); BUN Creatinine Ratio 21.5 (10-20); Bilirubin,Total 0.5 mg/dl (0.2-1.0); Calcium 9.3 mg/dl (8.6-10.3); Globulin 2.4 gm/dl (2.5-4.0); Magnesium 2.1 mg/dl (1.7-2.4); Potassium 4.3 mmol/L (3.5-5.1); Total Protein 5.8 gm/dl (6.0-8.3)
[2022-10-13 08:03] LABS: INR 1.1 (0.9-1.1)
[2022-10-13] MEDS: APIXABAN 2.5 MG TAB PO SCH (08:13)
--- NOTE | 2022-10-13 08:51 | Electrocardiogram Report ---
Test Reason : Blood Pressure : / mmHG Vent. Rate : 113 BPM Atrial Rate : 117 BPM P-R Int : 174 ms QRS Dur : 096 ms QT Int : 366 ms P-R-T Axes : 000 -18 099 degrees QTc Int : 502 ms Sinus tachycardia with short OK vs. SVT (?aflutter) PAC with compensatory pause Left ventricular hypertrophy with repolarization abnormality Abnormal ECG When compared with ECG of 20-JUL-2022 18:45, SVT or Sinus rhythm has replaced Atrial fibrillation ST depression in multiple leads no longer present Reconfirmed by Nick Krause ([id number]) on 10/13/2022 8:54:12 AM Referred By: REFERRED SELF Confirmed By:Nick Krause
[2022-10-13] MEDS ORDERED: ASPIRIN 81 MG ECTAB PO SCH (09:00)
[2022-10-13] MEDS ORDERED: SIMVASTATIN 20 MG TAB PO SCH (09:00)
--- NOTE | 2022-10-13 09:01 | Electrocardiogram Report ---
Test Reason : Blood Pressure : / mmHG Vent. Rate : 090 BPM Atrial Rate : 000 BPM P-R Int : 000 ms QRS Dur : 100 ms QT Int : 378 ms P-R-T Axes : 000 -33 097 degrees QTc Int : 462 ms Atrial fibrillation vs. atrial flutter Left axis deviation Incomplete right bundle branch block Voltage criteria for left ventricular hypertrophy Nonspecific ST and T wave abnormality Abnormal ECG When compared with ECG of 12-OCT-2022 16:40, HR has decreased by 23 bpm Confirmed by Nick Krause ([id number]) on 10/13/2022 9:01:28 AM Referred By: REFERRED SELF Confirmed By:Nick Krause
--- NOTE | 2022-10-13 09:52 | Cardiology Consultation ---
Date of Consultation October 13, 2022 Assessment & Plan (1) Paroxysmal atrial fibrillation: (2) Atrial fibrillation with RVR: Mrs. Esposito is an 87 year old female with a history of Hypertension, Hypercholesterolemia, Symptomatic PACs/PVCs, PSVT, Paroxysmal Atrial Fibrillation 04/2022, Mild Mitral Regurgitation 05/2021, Essential Tremor, Allergic Rhinitis, and Cataracts s/p Bilateral Intra-ocular Lens Implants who was admitted to [facility] on 10/12/22 after presenting with A-Fib with RVR. Patient was in her usual state of health leading up to this episode of A-Fib. She woke up yesterday morning and at approximately 9:45 a.m. developed sudden onset tachy-palpitations stating that her heart was "beating too fast and too hard." She subsequently took her usual doses of Amiodarone and Propranolol, but she did not convert back to a normal rhythm. Work-up in the ER showed an initial high sensitivity Troponin I of 19.4 pg/mL and this went up slightly to 20.9 pg/mL. CXR was read as "cardiomegaly without acute processes." EKG and Medical Superintendent showed A-Fib with an elevated V-rate. The patient was given IV Diltiazem 15 mg without conversion to NSR and was transitioned to a Diltiazem drip prior to admission. She remained in A-Fib with an elevated ventricular response rate. IV Diltiazem was discontinued in favor of IV Amiodarone -- and at approximately 2200 she converted back to Sinus Bradycardia with rates in the mid 30's to 40's -- she was asymptomatic with this sinus bradycardia. Patient did not have any angina pectoris, evidence of heart failure, nor has she had any symptoms suggestive of stroke or mini-stroke associated with this episode of A-Fib. Recommend the followin. Continue Eliquis 2.5 mg b.i.d.. 2. Continue Amiodarone 200 mg daily, consider increasing to 300 mg daily if recurrent A-Fib. 3. Continue Propranolol ER 60 mg daily. (3) Elevated troponin: Work-up in the ER showed an initial high sensitivity Troponin I of 19.4 pg/mL and this went up slightly to 20.9 pg/mL. No acute EKG changes. -- This is the result of demand ischemia. -- Continue Aspirin 81 mg daily. (4) Hypertension: Blood pressures appear to be controlled for the most part. 1. Continue Propranolol ER 60 mg daily. 2. Continue Losartan 50 mg daily. 3. Continue Doxazosin 1 mg daily. (5) Dyslipidemia: 1. Continue Simvastatin 20 mg daily. Patient is stable from a cardiac standpoint for discharge to home. Her medicat ion induced bradycardia should improve in coming hours. History of Present Illness Reason for Consultation: -- Paroxysmal Atrial Fibrillation. Requesting Physician: Anthony Keller DO Attending Physician: Trent Parada MD History of Present Illness Mrs. Esposito is an 87 year old female with a history of Hypertension, Hypercholesterolemia, Symptomatic PACs/PVCs, PSVT, Paroxysmal Atrial Fibrillation 04/2022, Mild Mitral Regurgitation 05/2021, Essential Tremor, Allergic Rhinitis, and Cataracts s/p Bilateral Intra-ocular Lens Implants who was admitted to [facility] on 10/12/22 after presenting with A-Fib with RVR. Patient was in her usual state of health leading up to this episode of A-Fib. She woke up yesterday morning and at approximately 9:45 a.m. developed sudden onset tachy-palpitations stating that her heart was "beating too fast and hard." She subsequently took her usual doses of Amiodarone and Propranolol, but she did not convert back to a normal rhythm. Work-up in the ER showed an initial high sensitivity Troponin I of 19.4 pg/mL and this wernt up slightly to 20.9 pg/mL. CXR was read as "cardiomegaly without acute processes." EKG and Medical Superintendent showed A-Fib with an elevated V-rate. The patient was given IV Diltiazem 15 mg without conversion to NSR and was transitioned to a Diltiazem drip prior to admission. She remained in A-Fib with an elevated ventricular response rate. IV Diltiazem was discontinued in favor of IV Amiodarone -- and at approximately 2200 she converted back to Sinus Bradycardia with rates in the mid 30's to 40's -- she was asymptomatic with this sinus bradycardia. Patient offers no other complaints. She denies any chest pain, dyspnea, nausea, vomiting, or diaphoresis when she was in A-Fib. She has not had any symptoms suggestive of stroke or mini-stroke. She is chronically anticoagulated with Eliquis 2.5 mg b.i.d.. Allergies Allergy/AdvReac Type Severity Reaction Status Date / Time No Known Drug Allergies AdvReac Unknown Unknown Verified 08/28/22 14:12 Home Medications Medication Instructions Recorded Confirmed Type cholecalciferol (vitamin D3) 50 2,000 units PO DAILY 03/19/19 10/12/22 History mcg (2,000 unit) capsule vitamins A,C,T-vpvd-pvfzoi 4,296 1 cap PO BID 05/02/21 10/12/22 History mcg-226 mg-90 mg capsule (PreserVision AREDS) losartan 50 mg tablet 50 mg PO DAILY 04/21/22 10/12/22 History doxazosin 1 mg tablet 1 mg PO DAILY #30 tabs 06/26/22 10/12/22 Rx aspirin 81 mg tablet,delayed 81 mg PO DAILY 07/20/22 10/12/22 History release simvastatin 20 mg tablet 20 mg PO DAILY #90 tabs 07/28/22 10/12/22 Rx amiodarone 200 mg tablet 200 mg PO DAILY #90 tabs 07/29/22 10/12/22 Rx apixaban 2.5 mg tablet (Eliquis) 2.5 mg PO BID #180 tabs 07/29/22 10/12/22 Rx propranolol 60 mg capsule,24 60 mg PO DAILY #90 caps 07/29/22 10/12/22 Rx hr,extended release Patient History Medical History Acute sinusitis Elevated troponin External carotid artery stenosis Fatigue Granulocytopenia Hypercalcemia Left thigh pain Low back ache Myofascial muscle pain Seborrheic keratosis Telangiectasia Surgical History History of cataract surgery Family History Brother Myocardial infarction Denies family history of Ovarian cancer Prostate cancer Breast cancer Colorectal cancer Social History Smoking Status: Never smoker Second Hand Exposure: No; Do You Dip or Chew Tobacco: No; Hx Alcohol Use: No Hx Substance Use: No Preferred Language: Irish Communication Ability: Effective Digital Media Designer Required: No Beliefs That Will Affect Care: None marital status: / Current Living Situation: Family Current Living Situation Comment: lives w/ son colten current occupational status: retired Feels Safe at Home: Yes Safety Concerns: Feels Safe At This Time Childhood Exposure to Second-Hand Smoke: Yes Diet: regular caffeine: Yes Dental Care, Regularly: Yes Physical Activity Frequency: Does not Exercise Seatbelt Use: always Sunscreen Use: Yes Assistive Devices: Glasses Review of Systems Review of Systems: 10 point ROS completed and is negative with the exception of what is mentioned in the HPI. Physical Exam Physical Exam: Blood pressure is 131/50, pulse 46 bpm and regular. GENERAL: Patient in no acute distress. HEENT: Head is atraumatic, normocephalic. EOM's intact. Facies symmetric. No perioral cyanosis. NECK: No JVD. JVP is not elevated. Carotid upstrokes are + 2 bilaterally without obvious bruits. CHEST/LUNGS: Clear to auscultation throughout all lung naylor. No wheezes, rales, or crackles. CVS: S1 and S2 are regular, bradycardic at 46 bpm. No obvious murmurs, gallops, or rubs. PMI is nondisplaced. No lifts, heaves, or thrills. No abdominal aortic or renal bruits. ABDOMINAL EXAM: Bowel sounds are present. No masses, organomegaly, or tenderness. EXTREMITIES: No clubbing or cyanosis. No edema. Intact posterior tibial and radial pulses bilaterally. NEUROLOGIC EXAM: Patient is awake, alert, and oriented. Pleasant and cooperative. Answers questions appropriately. Speech is clear. WEB OFFSET PRESS FEEDER: -- Sinus bradycardia at 44 bpm. -- Converted from A-Fib to sinus bradycardia at approximately 2200 on 10/12/22. Results & Data Vital Signs (Past 12 Hours) Vital Signs Temp Pulse Pulse Resp BP BP Pulse Ox 10/13/22 07:47 36.5 C 41 L 18 131/50 L 96 10/13/22 06:01 42 L 10/13/22 03:24 36.4 C L 40 L 18 129/66 97 10/13/22 01:56 38 L 134/59 L 10/12/22 23:20 36.4 C L 39 L 17 145/63 H 99 10/12/22 22:28 36.5 C 40 L 18 145/61 H 99 10/12/22 22:00 43 L 14 141/63 H 96 10/12/22 21:55 34 L 15 111/49 L 98 O2 Del Method 10/13/22 07:47 Room Air 10/13/22 06:01 10/13/22 03:24 Room Air 10/13/22 01:56 10/12/22 23:20 Room Air 10/12/22 22:28 Room Air 10/12/22 22:00 Room Air 10/12/22 21:55 Room Air Laboratory Results Laboratory Results - last 24 hr 10/12/22 10/12/22 10/12/22 16:55 16:55 16:55 WBC 4.15 L RBC 4.32 Hgb 13.4 Hct 40.3 MCV 93.3 MCH 31.0 MCHC 33.3 RDW Std Deviation 44.5 RDW Coeff of Elizabeth 13.0 Plt Count 177 MPV 10.5 Immature Gran % (Auto) 0.2 Neut % (Auto) 62.1 Lymph % (Auto) 21.2 [place] % (Auto) 13.3 Eos % (Auto) 2.2 Baso % (Auto) 1.0 Neut # (Auto) 2.58 Lymph # (Auto) 0.88 L [place] # (Auto) 0.55 Eos # (Auto) 0.09 Baso # (Auto) 0.04 Immature Gran # (Auto) 0.01 PT 11.5 INR 1.1 APTT 31.2 H PTT Ratio 1.1 Sodium 139 Potassium 4.1 Chloride 107 Carbon Dioxide 26 Anion Gap 6 BUN 20 Creatinine 0.88 Est Cr Clr Drug Dosing 37.0 Est GFR ( Amer) 69.4 Est GFR (Non-Af Amer) 59.9 BUN/Creatinine Ratio 22.7 H Glucose 103 H Calcium 10.2 Magnesium 1.9 Total Bilirubin 0.5 AST 23 ALT 25 Alkaline Phosphatase 84 Troponin I High Sens 19.4 H Total Protein 7.0 Albumin 4.0 Globulin 3.0 Albumin/Globulin Ratio 1.3 TSH SARS-CoV-2, RNA, NAAT 10/12/22 10/12/22 10/12/22 16:55 17:13 21:27 WBC RBC Hgb Hct MCV MCH MCHC RDW Std Deviation RDW Coeff of Elizabeth Plt Count MPV Immature Gran % (Auto) Neut % (Auto) Lymph % (Auto) [place] % (Auto) Eos % (Auto) Baso % (Auto) Neut # (Auto) Lymph # (Auto) [place] # (Auto) Eos # (Auto) Baso # (Auto) Immature Gran # (Auto) PT INR APTT PTT Ratio Sodium Potassium Chloride Carbon Dioxide Anion Gap BUN Creatinine Est Cr Clr Drug Dosing Est GFR ( Amer) Est GFR (Non-Af Amer) BUN/Creatinine Ratio Glucose Calcium Magnesium Total Bilirubin AST ALT Alkaline Phosphatase Troponin I High Sens 20.9 H Total Protein Albumin Globulin Albumin/Globulin Ratio TSH 1.273 SARS-CoV-2, RNA, NAAT NEGATIVE 10/13/22 10/13/22 10/13/22 06:51 06:51 06:51 WBC 4.16 L RBC 3.87 L Hgb 11.8 L Hct 36.9 L MCV 95.3 MCH 30.5 MCHC 32.0 RDW Std Deviation 46.3 RDW Coeff of Elizabeth 13.2 Plt Count 149 MPV 10.5 Immature Gran % (Auto) Neut % (Auto) Lymph % (Auto) [place] % (Auto) Eos % (Auto) Baso % (Auto) Neut # (Auto) Lymph # (Auto) [place] # (Auto) Eos # (Auto) Baso # (Auto) Immature Gran # (Auto) PT 12.0 INR 1.1 APTT PTT Ratio Sodium 139 Potassium 4.3 Chloride 108 H Carbon Dioxide 28 Anion Gap 3 BUN 20 Creatinine 0.93 Est Cr Clr Drug Dosing 35.0 Est GFR ( Amer) 65.0 Est GFR (Non-Af Amer) 56.0 BUN/Creatinine Ratio 21.5 H Glucose 91 Calcium 9.3 Magnesium 2.1 Total Bilirubin 0.5 AST 20 ALT 21 Alkaline Phosphatase 63 Troponin I High Sens Total Protein 5.8 L Albumin 3.4 Globulin 2.4 L Albumin/Globulin Ratio 1.4 TSH SARS-CoV-2, RNA, NAAT Diagnostic Findings CXR 10/12/22: Cardiac silhouette is enlarged. No pneumothorax, large pleural effusion, airspace consolidation or overt pulmonary edema. Possible trace pleural effusions. Degenerative changes of the shoulders and spine. Chronic appearing fracture deformity of the proximal right humerus. IMPRESSION: -- Cardiomegaly without acute process. Medications Administered Medications cholecalciferol (vitamin D3) 50 mcg (2,000 unit) capsule 2,000 units PO DAILY 03/19/19 [History Confirmed 10/12/22] vitamins A,C,I-zfwq-oymnsy 4,296 mcg-226 mg-90 mg capsule (PreserVision AREDS) 1 cap PO BID 05/02/21 [History Confirmed 10/12/22] losartan 50 mg tablet 50 mg PO DAILY 04/21/22 [History Confirmed 10/12/22] doxazosin 1 mg tablet 1 mg PO DAILY #30 tabs 06/26/22 [Rx Confirmed 10/12/22] aspirin 81 mg tablet,delayed release 81 mg PO DAILY 07/20/22 [History Confirmed 10/12/22] simvastatin 20 mg tablet 20 mg PO DAILY #90 tabs 07/28/22 [Rx Confirmed 10/12/22] amiodarone 200 mg tablet 200 mg PO DAILY #90 tabs 07/29/22 [Rx Confirmed 10/12/22] apixaban 2.5 mg tablet (Eliquis) 2.5 mg PO BID #180 tabs 07/29/22 [Rx Confirmed 10/12/22] propranolol 60 mg capsule,24 hr,extended release 60 mg PO DAILY #90 caps 07/29/22 [Rx Confirmed 10/12/22] Home Medications Apixaban (Apixaban 2.5 Mg Tab) 2.5 mg PO BID [facility] Stop: 11/11/22 22:20 Last Admin: 10/13/22 08:13 Dose: 2.5 mg Aspirin (Aspirin 81 Mg Ectab) 81 mg PO DAILY [facility] Stop: 11/12/22 08:59 Last Admin: 10/13/22 08:13 Dose: 81 mg Amiodarone HCl/Dextrose (Nexterone / D5w) 360 mg in 200 mls @ 16.667 mls/hr IV .Q12H [facility] Stop: 11/12/22 02:59 Last Admin: 10/13/22 06:56 Dose: Not Given Metoprolol Tartrate (Metoprolol Tartrate 1 Mg/Ml Vial) 5 mg IV Q4 PRN PRN Reason: tachycardia(systained HR>120) Simvastatin (Simvastatin 20 Mg Tab) 20 mg PO DAILY [facility] Stop: 11/12/22 08:59 Last Admin: 10/13/22 08:13 Dose: 20 mg PG Care Time/CCT Total # of Minutes Spent Total Time Spent with Patient: Total time spent is greater than 50% in coordination of care (as documented) at patient's floor/unit and/or counseling patient:46 Coding [place] [address] INT INP/OBS CARE 2/55MIN Patient Type Established History Detailed Exam Detailed Medical Decision Making Moderate Complexity Diagnoses Paroxysmal atrial fibrillation I48.0 Atrial fibrillation with RVR I48.91 Elevated troponin R77.8 Hypertension I10 Dyslipidemia E78.5 Time Spent (min) 62
== END 2022-10-13 15:14 | disposition home or self-care (01) | DRG 309 ==
LOC: ED 16:29 → 2S 20:58 → SUATTDRO 20:58 → 2S 22:03